=== PATIENT | male | born 1985 | race Two or more races ===

== ENCOUNTER 2019-12-23 15:28 | Inpatient (IN) | payer SELFPAY ==
[~2019-12-23] VITALS: Ht 160 cm; Wt 63.3 kg
[2019-12-23 15:30] VITALS: BP 130/80
[2019-12-23] MEDS ORDERED: Sodium Chloride 1,900 ML IVLG ONE (15:45)
[2019-12-23] MEDS ORDERED: Zinc Sulfate 220mg cap ORAL ONE (15:45)
[2019-12-23] MEDS ORDERED: Acetaminophen 500mg (ES) tab ORAL ONE (15:45)
--- NOTE | 2019-12-23 15:45 | Emergency Room Report ---
History of Present Illness General Chief Complaint: Fever Source: Patient Present Illness HPI Patient is a 34-year-old brought in by EMS after increased difficulty breathing and nonproductive cough. Patient presenting fever for the past 5 days. He reports having decreased appetite. Denies any significant abdominal pain. Reports having increased nausea and vomiting. Patient was noted to have some sick contacts at home. He reports having increased generalized pain and body aches. Patient denies any past medical history and states he works as a cook. Patient had been noted to be having low oxygen saturation with paramedics and was given supplemental oxygen as well as IV fluids. Allergies: Coded Allergies: No Known Allergies (Unverified , 12/23/19) COVID-19 Screening Contact w/high risk pt: No Recent Travel to affected area: No Experienced COVID-19 symptoms?: Yes COVID-19 symptoms experienced: Fever (T>100.4F or >38C), Cough Patient History Past Medical History: see triage record Reviewed Nursing Documentation: PMH: Agreed; PSxH: Agreed Nursing Documentation-PMH Past Medical History: No Stated History Review of Systems All Other Systems: negative except mentioned in HPI Physical Exam Vital Signs Date Time Temp Pulse Resp B/P (MAP) Pulse Ox O2 Delivery O2 Flow Rate FiO2 12/23/19 15:25 102.6 145 22 130/80 (97) 96 Nasal Cannula 2.0 General Appearance: alert, GCS 15, moderate distress ENT: hearing grossly normal Neck: full range of motion Respiratory: chest non-tender, rales, other - tachypnea Cardiovascular #1: normal peripheral pulses Gastrointestinal: normal inspection Musculoskeletal: normal inspection, back normal Neurologic: alert, motor strength/tone normal, corporate officer III-XII nml as tested, oriented x3 Psychiatric: normal inspection, memory normal Skin: no rash Procedures Critical Care Time Critical Care Time critical medical condition which untreated could potentially result in life or limb threatening injury. Total critical care time excluding procedures approximately 45 minutes. Medical Decision Making Diagnostic Impression: Primary Impression: Suspected 2019 novel coronavirus infection Additional Impression: Pneumonia ER Course Patient presented for fever. Differential diagnosis included wasn't limited to novel coronavirus infection, pneumonia, urinary tract infection, drug fever, allergic reaction, sepsis, cholecystitis, among others. because of complexity of patient's case laboratory tests and imaging studies were ordered. Patient was noted to have some symptoms consistent with coronavirus infection. Chest x- ray read by radiology showed questionable pulmonary infiltrate. Patient was given IV fluids as well as IV antibiotics. He was given antipyretic. He was started on supplemental oxygen and continued to have diminished oxygen saturation. Patient was admitted to the hospital for further evaluation and treatment of hypoxemia and suspected coronavirus infection. Dr. Benson was contacted for inpatient management due to panel physician Last Vital Signs Date Time Temp Pulse Resp B/P (MAP) Pulse Ox O2 Delivery O2 Flow Rate FiO2 12/23/19 15:25 102.6 145 22 130/80 (97) 96 Nasal Cannula 2.0 Status: improved Disposition: ADMITTED INPATIENT Condition: Serious Scripts No Active Prescriptions or Reported Meds Primo Wilson MD December 23, 2019 15:45
[2019-12-23 15:58] LABS: BASOPHILS % (AUTO) 0.4 % (0.0-2.0); HEMATOCRIT 47.6 % (42.0-52.0); HEMOGLOBIN 16.1 G/DL (14.2-18.0); LYMPHOCYTES % (AUTO) 16.6 % (20.0-45.0); MEAN CORPUSCULAR VOLUME 85 FL (80-99); MONOCYTES % (AUTO) 6.2 % (1.0-10.0); NEUTROPHILS % (AUTO) 76.9 % (45.0-75.0); PLATELET COUNT 164 K/UL (150-450); RED BLOOD COUNT 5.62 M/UL (4.70-6.10); RED CELL DISTRIBUTION WIDTH 11.6 % (11.6-14.8); WHITE BLOOD COUNT 6.2 K/UL (4.8-10.8)
[2019-12-23 16:30] VITALS: BP 130/80
[2019-12-23 16:38] LABS: ANION GAP 16 mmol/L (5-15); BLOOD UREA NITROGEN 12 mg/dL (7-18); CALCIUM 8.3 MG/DL (8.5-10.1); CARBON DIOXIDE 23 MMOL/L (21-32); CHLORIDE 101 MMOL/L (98-107); CREATININE 1.1 MG/DL (0.55-1.30); POTASSIUM 3.4 MMOL/L (3.5-5.1); SODIUM 140 MMOL/L (136-145)
[2019-12-23 16:51] LABS: ALANINE AMINOTRANSFERASE 36 U/L (12-78); ALBUMIN 3.6 G/DL (3.4-5.0); ALBUMIN/GLOBULIN RATIO 0.9 (1.0-2.7); ALKALINE PHOSPHATASE 58 U/L (46-116); ASPARTATE AMINO TRANSFERASE 29 U/L (15-37); BILIRUBIN,TOTAL 0.5 MG/DL (0.2-1.0); CKMB < 0.5 NG/ML (0.0-3.6); CREATINE KINASE 189 U/L (26-308); PHOSPHORUS 2.1 MG/DL (2.5-4.9)
[2019-12-23] MEDS ORDERED: Azithromycin 500 MG in D5W 275 ML IVPB ONE (17:00)
--- NOTE | 2019-12-23 17:03 | Diagnostic Imaging Report ---
Indication: Shortness of breath Technique: One view of the chest Comparison: none Findings: There is possibly some retrocardiac consolidation. There is some atelectasis at the left lung base. The remainder of the lungs and pleural spaces are clear. The heart size is normal. Impression: Questionable retrocardiac infiltrate Left basilar atelectasis
[2019-12-23 18:08] VITALS: BP 98/68
[2019-12-23] MEDS ORDERED: Ascorbic Acid 500mg tab ORAL ONE (18:15)
[2019-12-23] MEDS ORDERED: Thiamine HCl 100 MG in D5W 55 ML IVPB ONE (18:15)
[2019-12-23 18:46] VITALS: BP 100/69
[2019-12-23 19:10] VITALS: BP 107/69
[2019-12-23 19:58] LABS: APPEARANCE,URINE CLEAR; BILIRUBIN, URINE NEGATIVE (NEGATIVE); COLOR,URINE PALE YELLOW; GLUCOSE, URINE (UA) NEGATIVE (NEGATIVE); KETONES,URINE 3+ (NEGATIVE); LEUKOCYTE ESTERASE ,URINE NEGATIVE (NEGATIVE); NITRITE,URINE NEGATIVE (NEGATIVE); PH,URINE 6 (4.5-8.0); PROTEIN,URINE 2+ (NEGATIVE); UROBILINOGEN,URINE NORMAL MG/DL (0.0-1.0)
[2019-12-23 21:45] VITALS: BP 107/63
[2019-12-24] VITALS: BP 101/73
[2019-12-24 04:00] VITALS: BP 102/60
[2019-12-24 08:00] VITALS: BP 102/69
[2019-12-24 11:38] LABS: HEMATOCRIT 40.8 % (42.0-52.0); HEMOGLOBIN 14.5 G/DL (14.2-18.0); MEAN CORPUSCULAR VOLUME 82 FL (80-99); PLATELET COUNT 152 K/UL (150-450); RED BLOOD COUNT 4.96 M/UL (4.70-6.10); RED CELL DISTRIBUTION WIDTH 10.8 % (11.6-14.8); WHITE BLOOD COUNT 5.2 K/UL (4.8-10.8)
[2019-12-24 11:56] LABS: ALANINE AMINOTRANSFERASE 30 U/L (12-78); ALBUMIN 2.9 G/DL (3.4-5.0); ALBUMIN/GLOBULIN RATIO 0.8 (1.0-2.7); ALKALINE PHOSPHATASE 51 U/L (46-116); ANION GAP 9 mmol/L (5-15); ASPARTATE AMINO TRANSFERASE 24 U/L (15-37); BILIRUBIN,TOTAL 0.4 MG/DL (0.2-1.0); BLOOD UREA NITROGEN 9 mg/dL (7-18); CALCIUM 8.2 MG/DL (8.5-10.1); CARBON DIOXIDE 25 MMOL/L (21-32); CHLORIDE 106 MMOL/L (98-107); CREATININE 0.8 MG/DL (0.55-1.30); POTASSIUM 3.5 MMOL/L (3.5-5.1); SODIUM 140 MMOL/L (136-145)
[2019-12-24 12:00] VITALS: BP 111/70
--- NOTE | 2019-12-24 12:01 | Cardiac Electrophysiology PN ---
Subjective Subjective [id number] Objective Last 24 Hour Vital Signs Date Time Temp Pulse Resp B/P (MAP) Pulse Ox O2 Delivery O2 Flow Rate FiO2 12/24/19 08:00 97.6 100 21 102/69 (80) 97 12/24/19 04:00 99.1 102 19 102/60 (74) 98 12/24/19 04:00 106 12/24/19 00:00 98.8 71 18 101/73 (82) 97 12/24/19 00:00 85 12/23/19 22:00 Nasal Cannula 2.0 12/23/19 21:45 97.7 85 18 107/63 (78) 96 12/23/19 21:15 99.0 88 23 100/66 99 Nasal Cannula 2.0 12/23/19 19:10 99.1 94 27 107/69 98 Nasal Cannula 2.0 12/23/19 18:46 99.1 95 28 100/69 97 Nasal Cannula 2.0 12/23/19 18:08 101 28 98/68 98 Nasal Cannula 2.0 12/23/19 16:30 100.1 119 30 130/80 98 Nasal Cannula 2.0 12/23/19 16:22 102.5 12/23/19 15:30 119 30 12/23/19 15:25 102.6 145 22 130/80 (97) 96 Nasal Cannula 2.0 Intake and Output 12/23/19 12/24/19 19:00 07:00 # Voids 1 Laboratory Tests Test 12/23/19 15:35 12/23/19 19:30 12/24/19 10:45 White Blood Count 6.2 K/UL (4.8-10.8) 5.2 K/UL (4.8-10.8) Red Blood Count 5.62 M/UL (4.70-6.10) 4.96 M/UL (4.70-6.10) Hemoglobin 16.1 G/DL (14.2-18.0) 14.5 G/DL (14.2-18.0) Hematocrit 47.6 % (42.0-52.0) 40.8 % (42.0-52.0) L Mean Corpuscular Volume 85 FL (80-99) 82 FL (80-99) Mean Corpuscular Hemoglobin 28.7 PG (27.0-31.0) 29.2 PG (27.0-31.0) Mean Corpuscular Hemoglobin Concent 33.8 G/DL (32.0-36.0) 35.5 G/DL (32.0-36.0) Red Cell Distribution Width 11.6 % (11.6-14.8) 10.8 % (11.6-14.8) L Platelet Count 164 K/UL (150-450) 152 K/UL (150-450) Mean Platelet Volume 7.9 FL (6.5-10.1) 6.9 FL (6.5-10.1) Neutrophils (%) (Auto) 76.9 % (45.0-75.0) H % (45.0-75.0) Lymphocytes (%) (Auto) 16.6 % (20.0-45.0) L % (20.0-45.0) Monocytes (%) (Auto) 6.2 % (1.0-10.0) % (1.0-10.0) Eosinophils (%) (Auto) 0.0 % (0.0-3.0) % (0.0-3.0) Basophils (%) (Auto) 0.4 % (0.0-2.0) % (0.0-2.0) Sodium Level 140 MMOL/L (136-145) 140 MMOL/L (136-145) Potassium Level 3.4 MMOL/L (3.5-5.1) L 3.5 MMOL/L (3.5-5.1) Chloride Level 101 MMOL/L (98-107) 106 MMOL/L (98-107) Carbon Dioxide Level 23 MMOL/L (21-32) 25 MMOL/L (21-32) Anion Gap 16 mmol/L (5-15) H 9 mmol/L (5-15) Blood Urea Nitrogen 12 mg/dL (7-18) 9 mg/dL (7-18) Creatinine 1.1 MG/DL (0.55-1.30) 0.8 MG/DL (0.55-1.30) Estimat Glomerular Filtration Rate > 60 mL/min (>60) > 60 mL/min (>60) Glucose Level 114 MG/DL (74-106) H 113 MG/DL (74-106) H Lactic Acid Level 1.20 mmol/L (0.4-2.0) Calcium Level 8.3 MG/DL (8.5-10.1) L 8.2 MG/DL (8.5-10.1) L Phosphorus Level 2.1 MG/DL (2.5-4.9) L Magnesium Level 2.1 MG/DL (1.8-2.4) Total Bilirubin 0.5 MG/DL (0.2-1.0) 0.4 MG/DL (0.2-1.0) Aspartate Amino Transf (AST/SGOT) 29 U/L (15-37) 24 U/L (15-37) Alanine Aminotransferase (ALT/SGPT) 36 U/L (12-78) 30 U/L (12-78) Alkaline Phosphatase 58 U/L (46-116) 51 U/L (46-116) Total Creatine Kinase 189 U/L (26-308) Creatine Kinase MB < 0.5 NG/ML (0.0-3.6) Creatine Kinase MB Relative Index 0.2 Troponin I 0.000 ng/mL (0.000-0.056) Total Protein 7.5 G/DL (6.4-8.2) 6.5 G/DL (6.4-8.2) Albumin 3.6 G/DL (3.4-5.0) 2.9 G/DL (3.4-5.0) L Globulin 3.9 g/dL 3.6 g/dL Albumin/Globulin Ratio 0.9 (1.0-2.7) L 0.8 (1.0-2.7) L Urine Color Pale yellow Urine Appearance Clear Urine pH 6 (4.5-8.0) Urine Specific [place] 1.010 (1.005-1.035) Urine Protein 2+ (NEGATIVE) H Urine Glucose (UA) Negative (NEGATIVE) Urine Ketones 3+ (NEGATIVE) H Urine Blood Negative (NEGATIVE) Urine Nitrite Negative (NEGATIVE) Urine Bilirubin Negative (NEGATIVE) Urine Urobilinogen Normal MG/DL (0.0-1.0) Urine Leukocyte Esterase Negative (NEGATIVE) Urine RBC 0 /HPF (0 - 0) Urine WBC 0 /HPF (0 - 0) Urine Squamous Epithelial Cells None /LPF (NONE/OCC) Urine Bacteria None /HPF (NONE) Neutrophils % (Manual) Pending Lymphocytes % (Manual) Pending Platelet Estimate Pending Platelet Morphology Pending Paulo Panda MD December 24, 2019 12:01
[2019-12-24] MEDS: Azithromycin 250mg tab ORAL SCH (13:26)
[2019-12-24] MEDS: NS w/KCl 20mEq 1000ml 1,000 ML IV SCH (13:27)
[2019-12-24 16:00] VITALS: BP 117/76
--- NOTE | 2019-12-24 18:15 | Consultation ---
DATE OF CONSULTATION: 12/24/2019 PULMONARY CONSULTATION CONSULTING PHYSICIAN: Matt Rees MD. HISTORY OF PRESENT ILLNESS: This is a 34-year-old male who was brought into the hospital with cough and shortness of breath. Patient reports anorexia and fever. He denies abdominal pain. He has been having nausea and vomiting. He reports he has some sick contacts at home. Patient also reports myalgias. 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 PAST MEDICAL HISTORY: Otherwise noncontributory. SURGICAL HISTORY: None. SOCIAL HISTORY: None. REVIEW OF SYSTEMS: Denies any headaches, hematemesis, melena, hematochezia, night sweats, or weight loss. PHYSICAL EXAMINATION: GENERAL: Reveals a 34-year-old male. HEENT: Unremarkable. LUNGS: Show diminished breath sounds bilaterally with normal heart sounds. ABDOMEN: Soft. EXTREMITIES: There is no edema. VITAL SIGNS: O2 saturation 96% on 3 L of oxygen, blood pressure 130/80, heart rate is 120, respirations are 22, T-max 102.6. LABORATORY DATA: Lab testing shows normal CBC and chemistries with a potassium 3.4, glucose 114. Lactic acid 1.2. Urinalysis negative. IMAGING STUDIES: X-ray chest was obtained, which shows essentially clear lung foss with a possibility of a small left lung infiltrate. IMPRESSION: 1. Probable left lung pneumonia. 2. Rule out COVID-19. DISCUSSION: Admitted to the hospital. IV fluids to be given. Antiemetics and Tylenol. We will defer the initiation of Plaquenil to ID. Patient azithromycin. We will follow carefully. Matt Rees M.D. DR: SKY JOB#: [id number] CC:
[2019-12-24 20:00] VITALS: BP 112/70
--- NOTE | 2019-12-24 20:00 | Consultation ---
DATE OF CONSULTATION: 12/24/2019 INFECTIOUS DISEASES CONSULTATION CONSULTING PHYSICIAN: Jean Pierre Cardenas MD. PRIMARY ATTENDING PHYSICIAN: Neida Benson MD. REASON FOR CONSULTATION: Pneumonia, highly suspected COVID-19 disease. HISTORY OF PRESENT ILLNESS: The patient is a 34-year-old male admitted yesterday from home complaining of shortness of breath, fever, decreased appetite, nausea, vomiting for a week. At the time of admission, temperature of 102.6. He has coughing that is dry. His girlfriend became sick, has generalized body pain, decreased O2 saturation, and transferred to the hospital. PAST MEDICAL HISTORY: Insignificant. ALLERGIES: No known drug allergies. MEDICATIONS: Heparin, potassium chloride, sodium chloride , Tylenol, get dose of azithromycin, vitamin C, zinc in the ER. SOCIAL HISTORY: Lives with girlfriend, has no child. Denies alcohol, drug abuse, smoking. REVIEW OF SYSTEMS: Fever, dry cough, nausea, vomiting. No diarrhea. No problem passing urine. PHYSICAL EXAMINATION: VITAL SIGNS: Temperature 97.6, maximum temperature 102.6, pulse 100, blood pressure 102/69. GENERAL APPEARANCE: No acute distress, seems to have normal weight. HEAD AND NECK: [place] conjunctiva. HEART: Normal rate. LUNGS: Clear. ABDOMEN: Soft and nontender. EXTREMITIES: No edema. NEUROLOGIC: Awake, alert, oriented x3. LABORATORY AND DIAGNOSTIC DATA: Chest x-ray showed possibility of retrocardiac infiltrate. WBC 6.2, hemoglobin 16.1, hematocrit 47.6, has lymphopenia 16.6%. Sodium 140, potassium 3.4, chloride 101, bicarbonate 23, BUN 12, creatinine 1.1, glucose 114. Lactic acid normal, Magnesium 2.1. Phosphorus 2.1. IMPRESSION: 1. Pneumonia, likely COVID-19. 2. The patient has lymphopenia, fever. RECOMMENDATION: Continue Zithromax. The patient agrees if condition become worse, will be started on hydroxychloroquine. At the end of my exam, I thank Dr. Benson, for involving me in the care of this patient. Jean Peirre Cardenas M.D. DR: Nabil JOB#: [id number] CC: OSVALDO
[2019-12-24] MEDS: Heparin 5000 units/ml inj SUBQ SCH (20:29)
--- NOTE | 2019-12-24 22:14 | Consultation ---
DATE OF CONSULTATION: 12/24/2019 CARDIOLOGY CONSULTATION REFERRING PHYSICIAN: Neida Benson MD REASON FOR CONSULTATION: Shortness of breath and tachycardia, heart rate of 140s. HISTORY OF PRESENT ILLNESS: Patient is a 34-year-old gentleman who was brought in by paramedics for increased difficulty breathing as well as cough that is nonproductive. This has been going on for the last 5 days and he has had decreased appetite. Patient has reported increased nausea and vomiting. He is noted to have some sick contacts at home including generalized pain and body ache. 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 Patient was admitted and cardiology consultation was obtained for further evaluation. REVIEW OF SYSTEMS: Negative other than what was mentioned in history of present illness. PAST MEDICAL HISTORY: As mentioned above. FAMILY HISTORY: Noncontributory. MEDICATIONS: Per reconciliation. SOCIAL HISTORY: He works as a cook. Does not smoke or drink alcohol. PHYSICAL EXAMINATION: VITAL SIGNS: Blood pressure is 102/69, pulse is 100, respirations 18, temperature 97.6. NECK: No JVD. LUNGS: Coarse rhonchi. CARDIOVASCULAR: Regular S1 and S2 and tachycardic. ABDOMEN: Soft. EXTREMITIES: No pitting edema. LABORATORY AND DIAGNOSTIC DATA: Labs showed white count of 5.2, hemoglobin 14.5, hematocrit 40, and platelet count is 152. Sodium 140, potassium 3.5, BUN of 9, creatinine 0.8, and glucose of 113. The first troponin is negative. Urinalysis showed 3+ ketones. His chest x-ray shows left basilar atelectasis and consolidation. ASSESSMENT AND PLAN: 1. Tachycardia, likely due to the patient's infection and sepsis. Patient has been ruled out for COVID. Patient is already on azithromycin as well. 2. Shortness of breath, likely due to COVID pneumonia, but the final result is pending. Patient is already on antibiotics. Thank you very much Dr. Benson for allowing me to participate in the care of this patient. Please do not hesitate to contact me for any questions regarding my evaluation. Paulo Panda M.D. DR: Jimena JOB#: [id number] CC:
--- NOTE | 2019-12-24 23:15 | History and Physical Report ---
DATE OF ADMISSION: 12/23/2019 HISTORY OF PRESENT ILLNESS: The patient comes in with suspected COVID with cough and shortness of breath for couple of days, borderline O2 saturation. Chest x-ray shows pneumonia. The patient is highly suspicious of COVID, antibiotics with IV fluids and oxygen was given in the ER. The patient basically did have fever and chills. Denies abdominal pain. Denies nausea, vomiting, or diarrhea. The patient also is having body aches, myalgias and weakness. Denies headache. PAST MEDICAL HISTORY: Basically none. PAST SURGICAL HISTORY: None. ALLERGIES: No known allergies. MEDICATIONS: None. SOCIAL HISTORY: Denies history of smoking. Denies alcohol or illicit drugs. REVIEW OF SYSTEMS: HEENT: Denies headaches. RESPIRATORY: Denies shortness of breath. Cough for couple of days. CARDIOVASCULAR: Denies chest pain. Denies orthopnea. GASTROINTESTINAL: Denies nausea, vomiting or diarrhea. Denies abdominal pain. EXTREMITIES: Denies pain. CENTRAL NERVOUS SYSTEM: Denies change in speech pattern. Feels weak. PHYSICAL EXAMINATION: VITAL SIGNS: Temperature is 99.9, pulse is 100, blood pressure 102/69. HEENT: PERRLA. NECK: Supple. No lymphadenopathy. CHEST: Clear to auscultation. CARDIOVASCULAR: Tachycardic. GASTROINTESTINAL: Soft, nontender, nondistended. No organomegaly. EXTREMITIES: No edema. Reflexes equal on both sides. Moves all four extremities. LABORATORY DATA: WBC of 6.2, hemoglobin of 16.1, and platelets of 164. Sodium 140, potassium of 3.4, BUN of 12, creatinine 1.1, and glucose of 114. ASSESSMENT AND PLAN: Respiratory insufficiency, pneumonia, rule out COVID. I have asked basically Dr. Panda, Dr. Morrow, Dr. Greenfield about to see the patient for the treatment of the suspected COVID and also make sure that there is no cardiac pathology and sometimes the patients viral pneumonia presents with cardiac issues. We will monitor the patient very closely. Antibiotics per Dr. Jean Pierre Cardenas. Neida Benson M.D. DR: Priscila JOB#: [id number] CC:
[2019-12-25] VITALS: BP 101/72
[2019-12-25] MEDS: NS w/KCl 20mEq 1000ml 1,000 ML IV SCH ×2 (01:47→15:59)
[2019-12-25 04:00] VITALS: BP 115/65
[2019-12-25 04:32] LABS: BASOPHILS % (AUTO) 0.3 % (0.0-2.0); EOSINOPHILS % (AUTO) 0.2 % (0.0-3.0); HEMATOCRIT 39.1 % (42.0-52.0); HEMOGLOBIN 13.9 G/DL (14.2-18.0); LYMPHOCYTES % (AUTO) 25.4 % (20.0-45.0); MEAN CORPUSCULAR VOLUME 82 FL (80-99); NEUTROPHILS % (AUTO) 68.1 % (45.0-75.0); PLATELET COUNT 171 K/UL (150-450); RED BLOOD COUNT 4.78 M/UL (4.70-6.10); RED CELL DISTRIBUTION WIDTH 10.7 % (11.6-14.8); WHITE BLOOD COUNT 5.7 K/UL (4.8-10.8)
[2019-12-25 04:49] LABS: ANION GAP 11 mmol/L (5-15); BLOOD UREA NITROGEN 9 mg/dL (7-18); CALCIUM 7.8 MG/DL (8.5-10.1); CARBON DIOXIDE 26 MMOL/L (21-32); CHLORIDE 106 MMOL/L (98-107); CREATININE 0.8 MG/DL (0.55-1.30); POTASSIUM 3.7 MMOL/L (3.5-5.1); SODIUM 143 MMOL/L (136-145)
[2019-12-25 08:00] VITALS: BP 106/64
[2019-12-25] MEDS: Azithromycin 250mg tab ORAL SCH (10:20)
[2019-12-25] MEDS: Heparin 5000 units/ml inj SUBQ SCH ×2 (10:22→21:50)
--- NOTE | 2019-12-25 10:48 | Pulmonology Progress Note ---
Subjective Interval Events: + COVID 19 Constitutional: Reports: no symptoms HEENT: Repors: no symptoms Respiratory: Reports: dry cough, shortness of breath Cardiovascular: Reports: no symptoms Gastrointestinal/Abdominal: Reports: no symptoms Allergies: Coded Allergies: No Known Allergies (Unverified , 12/23/19) Objective Last 24 Hour Vital Signs Date Time Temp Pulse Resp B/P (MAP) Pulse Ox O2 Delivery O2 Flow Rate FiO2 12/25/19 09:00 Nasal Cannula 2.0 12/25/19 08:00 101.5 94 21 106/64 (78) 97 12/25/19 08:00 91 12/25/19 04:00 97.0 100 19 115/65 (82) 99 12/25/19 04:00 103 12/25/19 00:00 98.2 102 18 101/72 (82) 100 12/25/19 00:00 101 12/24/19 21:00 Nasal Cannula 2.0 12/24/19 20:00 116 12/24/19 20:00 98.5 115 18 112/70 (84) 97 12/24/19 16:00 98.7 69 19 117/76 (90) 95 12/24/19 16:00 115 12/24/19 12:00 98.3 10 20 111/70 (84) 95 12/24/19 12:00 121 Intake and Output 12/24/19 12/25/19 19:00 07:00 Intake Total 1290 ml Balance 1290 ml Intake Oral 960 ml IV Total 330 ml # Voids 2 # Bowel Movements 1 1 General Appearance: no acute distress HEENT: normocephalic Respiratory/Chest: chest wall non-tender, lungs clear Cardiovascular: normal peripheral pulses, normal rate Abdomen: normal bowel sounds Microbiology Date/Time Source Procedure Growth Status 12/23/19 15:50 Blood Blood Culture - Preliminary NO GROWTH AFTER 24 HOURS Resulted 12/23/19 15:35 Blood Blood Culture - Preliminary NO GROWTH AFTER 24 HOURS Resulted 12/23/19 15:35 Nasopharynx Coronavirus COVID-19 PCR (MEG) - Final Complete Laboratory Tests 12/25/19 04:00: White Blood Count 5.7, Red Blood Count 4.78, Hemoglobin 13.9L, Hematocrit 39.1L , Mean Corpuscular Volume 82, Mean Corpuscular Hemoglobin 29.1, Mean Corpuscular Hemoglobin Concent 35.5, Red Cell Distribution Width 10.7L, Platelet Count 171, Mean Platelet Volume 7.8, Neutrophils (%) (Auto) 68.1, Lymphocytes (%) (Auto) 25.4, Monocytes (%) (Auto) 6.0, Eosinophils (%) (Auto) 0.2, Basophils (%) (Auto) 0.3, Sodium Level 143, Potassium Level 3.7, Chloride Level 106, Carbon Dioxide Level 26, Anion Gap 11, Blood Urea Nitrogen 9, Creatinine 0.8, Estimat Glomerular Filtration Rate > 60, Glucose Level 99, Calcium Level 7.8L Current Medications Medications (Trade) Dose Ordered Sig/Brayden Route PRN Reason Start Time Stop Time Status Last Admin Dose Admin Acetaminophen (Tylenol) 650 mg Q4H PRN ORAL Temp >100.5 12/23/19 23:00 01/22/20 22:59 12/25/19 10:21 Acetaminophen (Tylenol) 650 mg Q4H PRN ORAL Mild Pain (Pain Scale 1-3) 12/24/19 10:45 01/23/20 10:44 Azithromycin (Zithromax) 500 mg DAILY ORAL 12/24/19 11:30 12/31/19 11:29 12/25/19 10:20 Dextrose (Dextrose 50%) 25 ml Q30M PRN IV Hypoglycemia 12/24/19 10:45 03/23/20 10:44 Dextrose (Dextrose 50%) 50 ml Q30M PRN IV Hypoglycemia 12/24/19 10:45 03/23/20 10:44 Heparin Sodium (Porcine) (Heparin 5000 units/ml) 5,000 units EVERY 12 HOURS SUBQ 12/24/19 21:00 02/07/20 20:59 12/25/19 10:22 Potassium Chloride/Sodium Chloride 1,000 ml @ 75 mls/hr [id number] IV 12/24/19 12:00 01/23/20 11:59 12/25/19 01:47 Assessment/Plan Assessment/Plan IMPRESSION: 1. Left lung pneumonia. 2. Positive COVID-19. DISCUSSION: Admitted to the hospital. IV fluids. Antiemetics and Tylenol. I will defer the initiation of Plaquenil to ID. Patient is on azithromycin. I will follow carefully. Jen Martinez Omar Syed MD December 25, 2019 10:48
[2019-12-25 12:00] VITALS: BP 117/65
--- NOTE | 2019-12-25 12:22 | Cardiac Electrophysiology PN ---
Assessment/Plan Assessment/Plan 1. Tachycardia, likely due to the patient's infection and sepsis and COVID PNA 2. Shortness of breath due to COVID pneumonia. 3. Fever 101 on Azithromycin Subjective Subjective In isolation for COVID PNA. Had fever 101.5 again Objective Last 24 Hour Vital Signs Date Time Temp Pulse Resp B/P (MAP) Pulse Ox O2 Delivery O2 Flow Rate FiO2 12/25/19 12:00 99.7 69 20 117/65 (82) 97 12/25/19 10:51 98.4 12/25/19 09:00 Nasal Cannula 2.0 12/25/19 08:00 101.5 94 21 106/64 (78) 97 12/25/19 08:00 91 12/25/19 04:00 97.0 100 19 115/65 (82) 99 12/25/19 04:00 103 12/25/19 00:00 98.2 102 18 101/72 (82) 100 12/25/19 00:00 101 12/24/19 21:00 Nasal Cannula 2.0 12/24/19 20:00 116 12/24/19 20:00 98.5 115 18 112/70 (84) 97 12/24/19 16:00 98.7 69 19 117/76 (90) 95 12/24/19 16:00 115 Intake and Output 12/24/19 12/25/19 19:00 07:00 Intake Total 1290 ml Balance 1290 ml Intake Oral 960 ml IV Total 330 ml # Voids 2 # Bowel Movements 1 1 Laboratory Tests Test 12/25/19 04:00 White Blood Count 5.7 K/UL (4.8-10.8) Red Blood Count 4.78 M/UL (4.70-6.10) Hemoglobin 13.9 G/DL (14.2-18.0) L Hematocrit 39.1 % (42.0-52.0) L Mean Corpuscular Volume 82 FL (80-99) Mean Corpuscular Hemoglobin 29.1 PG (27.0-31.0) Mean Corpuscular Hemoglobin Concent 35.5 G/DL (32.0-36.0) Red Cell Distribution Width 10.7 % (11.6-14.8) L Platelet Count 171 K/UL (150-450) Mean Platelet Volume 7.8 FL (6.5-10.1) Neutrophils (%) (Auto) 68.1 % (45.0-75.0) Lymphocytes (%) (Auto) 25.4 % (20.0-45.0) Monocytes (%) (Auto) 6.0 % (1.0-10.0) Eosinophils (%) (Auto) 0.2 % (0.0-3.0) Basophils (%) (Auto) 0.3 % (0.0-2.0) Sodium Level 143 MMOL/L (136-145) Potassium Level 3.7 MMOL/L (3.5-5.1) Chloride Level 106 MMOL/L (98-107) Carbon Dioxide Level 26 MMOL/L (21-32) Anion Gap 11 mmol/L (5-15) Blood Urea Nitrogen 9 mg/dL (7-18) Creatinine 0.8 MG/DL (0.55-1.30) Estimat Glomerular Filtration Rate > 60 mL/min (>60) Glucose Level 99 MG/DL (74-106) Calcium Level 7.8 MG/DL (8.5-10.1) L Microbiology Date/Time Source Procedure Growth Status 12/23/19 15:50 Blood Blood Culture - Preliminary NO GROWTH AFTER 24 HOURS Resulted 12/23/19 15:35 Blood Blood Culture - Preliminary NO GROWTH AFTER 24 HOURS Resulted 12/23/19 15:35 Nasopharynx Coronavirus COVID-19 PCR (MEG) - Final Complete Objective HEENT : No JVD. LUNGS: Coarse rhonchi. CARDIOVASCULAR: Regular S1 and S2 and tachycardic. ABDOMEN: Soft. EXTREMITIES: No pitting edema. Paulo Panda MD December 25, 2019 12:22
--- NOTE | 2019-12-25 14:36 | Infectious Diseases Prog Note ---
Assessment/Plan Assessment/Plan IMPRESSION: 1. Pneumonia with COVID-19. 2. Lymphopenia, 3.fever. RECOMMENDATION: Continue Zithromax. will be started on hydroxychloroquine after obtaining EKG Subjective ROS Limited/Unobtainable: Yes Constitutional: Reports: fever, other - Tu=963.5 Allergies: Coded Allergies: No Known Allergies (Unverified , 12/23/19) Objective Vital Signs Last 24 Hour Vital Signs Date Time Temp Pulse Resp B/P (MAP) Pulse Ox O2 Delivery O2 Flow Rate FiO2 12/25/19 14:00 91 12/25/19 12:00 99.7 69 20 117/65 (82) 97 12/25/19 10:51 98.4 12/25/19 09:00 Nasal Cannula 2.0 12/25/19 08:00 101.5 94 21 106/64 (78) 97 12/25/19 08:00 91 12/25/19 04:00 97.0 100 19 115/65 (82) 99 12/25/19 04:00 103 12/25/19 00:00 98.2 102 18 101/72 (82) 100 12/25/19 00:00 101 12/24/19 21:00 Nasal Cannula 2.0 12/24/19 20:00 116 12/24/19 20:00 98.5 115 18 112/70 (84) 97 12/24/19 16:00 98.7 69 19 117/76 (90) 95 12/24/19 16:00 115 Height (Feet): 5 Height (Inches): 3.00 Weight (Pounds): 139 General Appearance: no acute distress HEENT: mucous membranes moist Respiratory/Chest: lungs clear Cardiovascular: normal rate Abdomen: soft, non tender Extremities: no edema Neurologic/Psychiatric: other - sleeping Microbiology Date/Time Source Procedure Growth Status 12/23/19 15:50 Blood Blood Culture - Preliminary NO GROWTH AFTER 24 HOURS Resulted 12/23/19 15:35 Blood Blood Culture - Preliminary NO GROWTH AFTER 24 HOURS Resulted 12/23/19 15:35 Nasopharynx Coronavirus COVID-19 PCR (MEG) - Final Complete Laboratory Tests Test 12/25/19 04:00 White Blood Count 5.7 K/UL (4.8-10.8) Red Blood Count 4.78 M/UL (4.70-6.10) Hemoglobin 13.9 G/DL (14.2-18.0) L Hematocrit 39.1 % (42.0-52.0) L Mean Corpuscular Volume 82 FL (80-99) Mean Corpuscular Hemoglobin 29.1 PG (27.0-31.0) Mean Corpuscular Hemoglobin Concent 35.5 G/DL (32.0-36.0) Red Cell Distribution Width 10.7 % (11.6-14.8) L Platelet Count 171 K/UL (150-450) Mean Platelet Volume 7.8 FL (6.5-10.1) Neutrophils (%) (Auto) 68.1 % (45.0-75.0) Lymphocytes (%) (Auto) 25.4 % (20.0-45.0) Monocytes (%) (Auto) 6.0 % (1.0-10.0) Eosinophils (%) (Auto) 0.2 % (0.0-3.0) Basophils (%) (Auto) 0.3 % (0.0-2.0) Sodium Level 143 MMOL/L (136-145) Potassium Level 3.7 MMOL/L (3.5-5.1) Chloride Level 106 MMOL/L (98-107) Carbon Dioxide Level 26 MMOL/L (21-32) Anion Gap 11 mmol/L (5-15) Blood Urea Nitrogen 9 mg/dL (7-18) Creatinine 0.8 MG/DL (0.55-1.30) Estimat Glomerular Filtration Rate > 60 mL/min (>60) Glucose Level 99 MG/DL (74-106) Calcium Level 7.8 MG/DL (8.5-10.1) L Current Medications Medications (Trade) Dose Ordered Sig/Brayden Route PRN Reason Start Time Stop Time Status Last Admin Dose Admin Acetaminophen (Tylenol) 650 mg Q4H PRN ORAL Temp >100.5 12/23/19 23:00 01/22/20 22:59 12/25/19 10:21 Acetaminophen (Tylenol) 650 mg Q4H PRN ORAL Mild Pain (Pain Scale 1-3) 12/24/19 10:45 01/23/20 10:44 Azithromycin (Zithromax) 500 mg DAILY ORAL 12/24/19 11:30 12/31/19 11:29 12/25/19 10:20 Dextrose (Dextrose 50%) 25 ml Q30M PRN IV Hypoglycemia 12/24/19 10:45 03/23/20 10:44 Dextrose (Dextrose 50%) 50 ml Q30M PRN IV Hypoglycemia 12/24/19 10:45 03/23/20 10:44 Heparin Sodium (Porcine) (Heparin 5000 units/ml) 5,000 units EVERY 12 HOURS SUBQ 12/24/19 21:00 02/07/20 20:59 12/25/19 10:22 Potassium Chloride/Sodium Chloride 1,000 ml @ 75 mls/hr [id number] IV 12/24/19 12:00 01/23/20 11:59 12/25/19 01:47 Jean Pierre Cardenas MD December 25, 2019 14:36
[2019-12-25 16:00] VITALS: BP 105/60
--- NOTE | 2019-12-25 16:29 | General Progress Note ---
Assessment/Plan Problem List: (1) Suspected 2019 novel coronavirus infection ICD Codes: Z20.828 - Contact with and (suspected) exposure to other viral communicable diseases SNOMED: 762044644 (2) Fever ICD Codes: R50.9 - Fever, unspecified SNOMED: 354284093 (3) Shortness of breath ICD Codes: R06.02 - Shortness of breath SNOMED: 559239481 Assessment/Plan: r/o covid no sob afebrile no wheezing reviewed chart and labs Subjective ROS Limited/Unobtainable: Yes Allergies: Coded Allergies: No Known Allergies (Unverified , 12/23/19) Objective Last 24 Hour Vital Signs Date Time Temp Pulse Resp B/P (MAP) Pulse Ox O2 Delivery O2 Flow Rate FiO2 12/25/19 14:00 91 12/25/19 12:00 99.7 69 20 117/65 (82) 97 12/25/19 10:51 98.4 12/25/19 09:00 Nasal Cannula 2.0 12/25/19 08:00 101.5 94 21 106/64 (78) 97 12/25/19 08:00 91 12/25/19 04:00 97.0 100 19 115/65 (82) 99 12/25/19 04:00 103 12/25/19 00:00 98.2 102 18 101/72 (82) 100 12/25/19 00:00 101 12/24/19 21:00 Nasal Cannula 2.0 12/24/19 20:00 116 12/24/19 20:00 98.5 115 18 112/70 (84) 97 Intake and Output 12/24/19 12/25/19 19:00 07:00 Intake Total 1290 ml Balance 1290 ml Intake Oral 960 ml IV Total 330 ml # Voids 2 # Bowel Movements 1 1 Laboratory Tests 12/25/19 04:00: White Blood Count 5.7, Red Blood Count 4.78, Hemoglobin 13.9L, Hematocrit 39.1L , Mean Corpuscular Volume 82, Mean Corpuscular Hemoglobin 29.1, Mean Corpuscular Hemoglobin Concent 35.5, Red Cell Distribution Width 10.7L, Platelet Count 171, Mean Platelet Volume 7.8, Neutrophils (%) (Auto) 68.1, Lymphocytes (%) (Auto) 25.4, Monocytes (%) (Auto) 6.0, Eosinophils (%) (Auto) 0.2, Basophils (%) (Auto) 0.3, Sodium Level 143, Potassium Level 3.7, Chloride Level 106, Carbon Dioxide Level 26, Anion Gap 11, Blood Urea Nitrogen 9, Creatinine 0.8, Estimat Glomerular Filtration Rate > 60, Glucose Level 99, Calcium Level 7.8L Height (Feet): 5 Height (Inches): 3.00 Weight (Pounds): 139 Neida Benson MD December 25, 2019 16:29
[2019-12-25 20:00] VITALS: BP 115/74
[2019-12-26] VITALS: BP 103/67
[2019-12-26 04:00] VITALS: BP 116/64
[2019-12-26] MEDS: NS w/KCl 20mEq 1000ml 1,000 ML IV SCH ×2 (04:54→16:23)
[2019-12-26 08:00] VITALS: BP 112/70
[2019-12-26] MEDS: Azithromycin 250mg tab ORAL SCH (08:41)
[2019-12-26] MEDS: Heparin 5000 units/ml inj SUBQ SCH ×2 (08:43→21:06)
--- NOTE | 2019-12-26 11:10 | Pulmonology Progress Note ---
Subjective ROS Limited/Unobtainable: Yes Interval Events: + COVID 19 Constitutional: Reports: fever, other - Xn=498.5 HEENT: Repors: no symptoms Respiratory: Reports: dry cough, shortness of breath Cardiovascular: Reports: no symptoms Gastrointestinal/Abdominal: Reports: no symptoms Allergies: Coded Allergies: No Known Allergies (Unverified , 12/23/19) Objective Last 24 Hour Vital Signs Date Time Temp Pulse Resp B/P (MAP) Pulse Ox O2 Delivery O2 Flow Rate FiO2 12/26/19 09:00 Nasal Cannula 2.0 12/26/19 08:00 98.4 69 20 112/70 (84) 95 12/26/19 08:00 121 12/26/19 04:00 99.7 98 20 116/64 (81) 100 12/26/19 04:00 91 12/26/19 00:00 99 12/26/19 00:00 100.0 105 20 103/67 (79) 98 12/25/19 21:00 Nasal Cannula 2.0 12/25/19 20:00 104 12/25/19 20:00 100.0 108 22 115/74 (88) 96 12/25/19 16:00 98.2 76 21 105/60 (75) 95 12/25/19 16:00 89 12/25/19 14:00 91 12/25/19 12:00 99.7 69 20 117/65 (82) 97 Intake and Output 12/25/19 12/26/19 19:00 07:00 Intake Total 1275 ml 950 ml Output Total 400 ml Balance 1275 ml 550 ml Intake Oral 1200 ml 350 ml IV Total 75 ml 600 ml Output Urine Total 400 ml # Voids 2 # Bowel Movements 1 1 General Appearance: no acute distress HEENT: mucous membranes moist Respiratory/Chest: chest wall non-tender, lungs clear Cardiovascular: normal peripheral pulses, normal rate Abdomen: soft, non tender Extremities: no edema Neurologic/Psychiatric: other - sleeping Microbiology Date/Time Source Procedure Growth Status 12/23/19 15:50 Blood Blood Culture - Preliminary NO GROWTH AFTER 48 HOURS Resulted 12/23/19 15:35 Blood Blood Culture - Preliminary NO GROWTH AFTER 48 HOURS Resulted 12/23/19 15:35 Nasopharynx Coronavirus COVID-19 PCR (MEG) - Final Complete Current Medications Medications (Trade) Dose Ordered Sig/Brayden Route PRN Reason Start Time Stop Time Status Last Admin Dose Admin Acetaminophen (Tylenol) 650 mg Q4H PRN ORAL Temp >100.5 12/23/19 23:00 01/22/20 22:59 12/25/19 10:21 Acetaminophen (Tylenol) 650 mg Q4H PRN ORAL Mild Pain (Pain Scale 1-3) 12/24/19 10:45 01/23/20 10:44 Azithromycin (Zithromax) 500 mg DAILY ORAL 12/24/19 11:30 12/31/19 11:29 12/26/19 08:41 Dextrose (Dextrose 50%) 25 ml Q30M PRN IV Hypoglycemia 12/24/19 10:45 03/23/20 10:44 Dextrose (Dextrose 50%) 50 ml Q30M PRN IV Hypoglycemia 12/24/19 10:45 03/23/20 10:44 Heparin Sodium (Porcine) (Heparin 5000 units/ml) 5,000 units EVERY 12 HOURS SUBQ 12/24/19 21:00 02/07/20 20:59 12/26/19 08:43 Potassium Chloride/Sodium Chloride 1,000 ml @ 75 mls/hr [id number] IV 12/24/19 12:00 01/23/20 11:59 12/26/19 04:54 Assessment/Plan Assessment/Plan IMPRESSION: 1. Left lung pneumonia. 2. Positive COVID-19. DISCUSSION: Admitted to the hospital. IV fluids. Antiemetics and Tylenol. I will defer the initiation of Plaquenil to ID. Patient is on azithromycin. I will follow carefully. Saturating well on 2L/min O2 Jen Martinez Omar Syed MD December 26, 2019 11:10
[2019-12-26 11:56] VITALS: BP 106/64
--- NOTE | 2019-12-26 12:28 | Infectious Diseases Prog Note ---
Assessment/Plan Assessment/Plan IMPRESSION: 1. Pneumonia with COVID-19. 2. Lymphopenia, resolving 3.fever. RECOMMENDATION: Continue Zithromax. Subjective ROS Limited/Unobtainable: No Constitutional: Reports: fever, other - low grade, feels better Respiratory: Reports: dry cough; Denies: shortness of breath Gastrointestinal/Abdominal: Reports: no symptoms Genitourinary: Reports: no symptoms Neurologic: Reports: no symptoms Allergies: Coded Allergies: No Known Allergies (Unverified , 12/23/19) Objective Vital Signs Last 24 Hour Vital Signs Date Time Temp Pulse Resp B/P (MAP) Pulse Ox O2 Delivery O2 Flow Rate FiO2 12/26/19 11:56 98.4 93 21 106/64 (78) 95 12/26/19 09:00 Nasal Cannula 2.0 12/26/19 08:00 98.4 69 20 112/70 (84) 95 12/26/19 08:00 121 12/26/19 04:00 99.7 98 20 116/64 (81) 100 12/26/19 04:00 91 12/26/19 00:00 99 12/26/19 00:00 100.0 105 20 103/67 (79) 98 12/25/19 21:00 Nasal Cannula 2.0 12/25/19 20:00 104 12/25/19 20:00 100.0 108 22 115/74 (88) 96 12/25/19 16:00 98.2 76 21 105/60 (75) 95 12/25/19 16:00 89 12/25/19 14:00 91 Height (Feet): 5 Height (Inches): 3.00 Weight (Pounds): 139 General Appearance: no acute distress HEENT: anicteric Respiratory/Chest: other - oxygen by nasal cannula Cardiovascular: normal rate Abdomen: soft, non tender Extremities: no edema Neurologic/Psychiatric: alert, oriented x 3, responsive Microbiology Date/Time Source Procedure Growth Status 12/23/19 15:50 Blood Blood Culture - Preliminary NO GROWTH AFTER 48 HOURS Resulted 12/23/19 15:35 Blood Blood Culture - Preliminary NO GROWTH AFTER 48 HOURS Resulted 12/23/19 15:35 Nasopharynx Coronavirus COVID-19 PCR (MEG) - Final Complete Current Medications Medications (Trade) Dose Ordered Sig/Brayden Route PRN Reason Start Time Stop Time Status Last Admin Dose Admin Acetaminophen (Tylenol) 650 mg Q4H PRN ORAL Temp >100.5 12/23/19 23:00 01/22/20 22:59 12/25/19 10:21 Acetaminophen (Tylenol) 650 mg Q4H PRN ORAL Mild Pain (Pain Scale 1-3) 12/24/19 10:45 01/23/20 10:44 Azithromycin (Zithromax) 500 mg DAILY ORAL 12/24/19 11:30 12/31/19 11:29 12/26/19 08:41 Dextrose (Dextrose 50%) 25 ml Q30M PRN IV Hypoglycemia 12/24/19 10:45 03/23/20 10:44 Dextrose (Dextrose 50%) 50 ml Q30M PRN IV Hypoglycemia 12/24/19 10:45 03/23/20 10:44 Heparin Sodium (Porcine) (Heparin 5000 units/ml) 5,000 units EVERY 12 HOURS SUBQ 12/24/19 21:00 02/07/20 20:59 12/26/19 08:43 Potassium Chloride/Sodium Chloride 1,000 ml @ 75 mls/hr [id number] IV 12/24/19 12:00 01/23/20 11:59 12/26/19 04:54 Jean Pierre Cardenas MD December 26, 2019 12:28
--- NOTE | 2019-12-26 13:58 | Cardiac Electrophysiology PN ---
Assessment/Plan Assessment/Plan 1. Tachycardia, likely due to sepsis and COVID PNA 2. Shortness of breath due to COVID pneumonia. 3. Fever 101 on Azithromycin Subjective Subjective In isolation for COVID PNA. No new events Objective Last 24 Hour Vital Signs Date Time Temp Pulse Resp B/P (MAP) Pulse Ox O2 Delivery O2 Flow Rate FiO2 12/26/19 11:56 98.4 93 21 106/64 (78) 95 12/26/19 09:00 Nasal Cannula 2.0 12/26/19 08:00 98.4 69 20 112/70 (84) 95 12/26/19 08:00 121 12/26/19 04:00 99.7 98 20 116/64 (81) 100 12/26/19 04:00 91 12/26/19 00:00 99 12/26/19 00:00 100.0 105 20 103/67 (79) 98 12/25/19 21:00 Nasal Cannula 2.0 12/25/19 20:00 104 12/25/19 20:00 100.0 108 22 115/74 (88) 96 12/25/19 16:00 98.2 76 21 105/60 (75) 95 12/25/19 16:00 89 12/25/19 14:00 91 Intake and Output 12/25/19 12/26/19 19:00 07:00 Intake Total 1275 ml 950 ml Output Total 400 ml Balance 1275 ml 550 ml Intake Oral 1200 ml 350 ml IV Total 75 ml 600 ml Output Urine Total 400 ml # Voids 2 # Bowel Movements 1 1 Microbiology Date/Time Source Procedure Growth Status 12/23/19 15:50 Blood Blood Culture - Preliminary NO GROWTH AFTER 48 HOURS Resulted 12/23/19 15:35 Blood Blood Culture - Preliminary NO GROWTH AFTER 48 HOURS Resulted 12/23/19 15:35 Nasopharynx Coronavirus COVID-19 PCR (MEG) - Final Complete Objective HEENT : No JVD. LUNGS: Coarse rhonchi. CARDIOVASCULAR: Regular S1 and S2 and tachycardic. ABDOMEN: Soft. EXTREMITIES: No pitting edema. Paulo Panda MD December 26, 2019 13:58
[2019-12-26 15:34] VITALS: BP 109/66
--- NOTE | 2019-12-26 16:36 | General Progress Note ---
Assessment/Plan Problem List: (1) Suspected 2019 novel coronavirus infection ICD Codes: Z20.828 - Contact with and (suspected) exposure to other viral communicable diseases SNOMED: 163210630 (2) Fever ICD Codes: R50.9 - Fever, unspecified SNOMED: 381350297 (3) Shortness of breath ICD Codes: R06.02 - Shortness of breath SNOMED: 577479089 Status: progressing Assessment/Plan: covid positive pna not hypoxic no sob afebrile no wheezing reviewed chart and labs Subjective ROS Limited/Unobtainable: Yes Allergies: Coded Allergies: No Known Allergies (Unverified , 12/23/19) Objective Last 24 Hour Vital Signs Date Time Temp Pulse Resp B/P (MAP) Pulse Ox O2 Delivery O2 Flow Rate FiO2 12/26/19 15:34 99.1 92 20 109/66 (80) 97 12/26/19 11:56 98.4 93 21 106/64 (78) 95 12/26/19 09:00 Nasal Cannula 2.0 12/26/19 08:00 98.4 69 20 112/70 (84) 95 12/26/19 08:00 121 12/26/19 04:00 99.7 98 20 116/64 (81) 100 12/26/19 04:00 91 12/26/19 00:00 99 12/26/19 00:00 100.0 105 20 103/67 (79) 98 12/25/19 21:00 Nasal Cannula 2.0 12/25/19 20:00 104 12/25/19 20:00 100.0 108 22 115/74 (88) 96 Intake and Output 12/25/19 12/26/19 19:00 07:00 Intake Total 1275 ml 950 ml Output Total 400 ml Balance 1275 ml 550 ml Intake Oral 1200 ml 350 ml IV Total 75 ml 600 ml Output Urine Total 400 ml # Voids 2 # Bowel Movements 1 1 Height (Feet): 5 Height (Inches): 3.00 Weight (Pounds): 139 Neida Benson MD December 26, 2019 16:36
[2019-12-26 20:00] VITALS: BP 112/62
[2019-12-27] VITALS: BP 100/61
[2019-12-27 04:00] VITALS: BP 100/62
[2019-12-27] MEDS: NS w/KCl 20mEq 1000ml 1,000 ML IV SCH ×2 (06:21→22:37)
[2019-12-27 08:00] VITALS: BP 99/59
[2019-12-27] MEDS: Azithromycin 250mg tab ORAL SCH (08:34)
[2019-12-27] MEDS: Heparin 5000 units/ml inj SUBQ SCH ×2 (08:35→22:36)
--- NOTE | 2019-12-27 11:25 | Pulmonology Progress Note ---
Subjective ROS Limited/Unobtainable: Yes Interval Events: + COVID 19 Constitutional: Reports: fever, other - low grade, feels better HEENT: Repors: no symptoms Respiratory: Reports: dry cough, shortness of breath Cardiovascular: Reports: no symptoms Gastrointestinal/Abdominal: Reports: no symptoms Allergies: Coded Allergies: No Known Allergies (Unverified , 12/23/19) Objective Last 24 Hour Vital Signs Date Time Temp Pulse Resp B/P (MAP) Pulse Ox O2 Delivery O2 Flow Rate FiO2 12/27/19 09:00 Nasal Cannula 2.0 12/27/19 08:00 97.9 83 16 99/59 (72) 98 12/27/19 07:44 103 12/27/19 04:00 80 12/27/19 04:00 97.5 85 18 100/62 (75) 98 12/27/19 00:00 97.7 81 19 100/61 (74) 95 12/27/19 00:00 89 12/26/19 21:00 Nasal Cannula 2.0 12/26/19 20:00 97.5 87 19 112/62 (79) 97 12/26/19 20:00 85 12/26/19 16:00 94 12/26/19 15:34 99.1 92 20 109/66 (80) 97 12/26/19 12:00 119 12/26/19 11:56 98.4 93 21 106/64 (78) 95 Intake and Output 12/26/19 12/27/19 19:00 07:00 Intake Total 825 ml Balance 825 ml IV Total 825 ml # Voids 2 1 # Bowel Movements 2 1 General Appearance: no acute distress HEENT: anicteric Respiratory/Chest: chest wall non-tender, lungs clear Cardiovascular: normal peripheral pulses, normal rate Abdomen: soft, non tender Extremities: no edema Neurologic/Psychiatric: alert, oriented x 3, responsive Current Medications Medications (Trade) Dose Ordered Sig/Brayden Route PRN Reason Start Time Stop Time Status Last Admin Dose Admin Acetaminophen (Tylenol) 650 mg Q4H PRN ORAL Temp >100.5 12/23/19 23:00 01/22/20 22:59 12/25/19 10:21 Acetaminophen (Tylenol) 650 mg Q4H PRN ORAL Mild Pain (Pain Scale 1-3) 12/24/19 10:45 01/23/20 10:44 Azithromycin (Zithromax) 500 mg DAILY ORAL 12/24/19 11:30 12/31/19 11:29 12/27/19 08:34 Dextrose (Dextrose 50%) 25 ml Q30M PRN IV Hypoglycemia 12/24/19 10:45 03/23/20 10:44 Dextrose (Dextrose 50%) 50 ml Q30M PRN IV Hypoglycemia 12/24/19 10:45 03/23/20 10:44 Heparin Sodium (Porcine) (Heparin 5000 units/ml) 5,000 units EVERY 12 HOURS SUBQ 12/24/19 21:00 02/07/20 20:59 12/27/19 08:35 Potassium Chloride/Sodium Chloride 1,000 ml @ 75 mls/hr [id number] IV 12/24/19 12:00 01/23/20 11:59 12/27/19 06:21 Assessment/Plan Assessment/Plan IMPRESSION: 1. Left lung pneumonia. 2. Positive COVID-19. DISCUSSION: Admitted to the hospital. IV fluids. Antiemetics and Tylenol. I will defer the initiation of Plaquenil to ID. Patient is on azithromycin. I will follow carefully. Saturating well on 2L/min O2 Matt Rees M.D. Matt Rees MD December 27, 2019 11:25
[2019-12-27 12:00] VITALS: BP 103/68
--- NOTE | 2019-12-27 15:32 | Cardiac Electrophysiology PN ---
Assessment/Plan Assessment/Plan 1. Tachycardia, likely due to sepsis and COVID PNA 2. Shortness of breath due to COVID pneumonia. 3. Fever 101 on Abx per ID DW RN Subjective Subjective In isolation for COVID PNA. No new events. If afebrile for 3 days, will DC home Objective Last 24 Hour Vital Signs Date Time Temp Pulse Resp B/P (MAP) Pulse Ox O2 Delivery O2 Flow Rate FiO2 12/27/19 09:00 Nasal Cannula 2.0 12/27/19 08:00 97.9 83 16 99/59 (72) 98 12/27/19 07:44 103 12/27/19 04:00 80 12/27/19 04:00 97.5 85 18 100/62 (75) 98 12/27/19 00:00 97.7 81 19 100/61 (74) 95 12/27/19 00:00 89 12/26/19 21:00 Nasal Cannula 2.0 12/26/19 20:00 97.5 87 19 112/62 (79) 97 12/26/19 20:00 85 12/26/19 16:00 94 12/26/19 15:34 99.1 92 20 109/66 (80) 97 Intake and Output 12/26/19 12/27/19 19:00 07:00 Intake Total 825 ml Balance 825 ml IV Total 825 ml # Voids 2 1 # Bowel Movements 2 1 Objective HEENT : No JVD. LUNGS: Coarse rhonchi. CARDIOVASCULAR: Regular S1 and S2 and tachycardic. ABDOMEN: Soft. EXTREMITIES: No pitting edema. Paulo Panda MD December 27, 2019 15:32
[2019-12-27 16:00] VITALS: BP 103/69
--- NOTE | 2019-12-27 16:27 | General Progress Note ---
Assessment/Plan Problem List: (1) Suspected 2019 novel coronavirus infection ICD Codes: Z20.828 - Contact with and (suspected) exposure to other viral communicable diseases SNOMED: 890375762 (2) Fever ICD Codes: R50.9 - Fever, unspecified SNOMED: 921322333 (3) Shortness of breath ICD Codes: R06.02 - Shortness of breath SNOMED: 950418043 Status: progressing Assessment/Plan: covid positive pna no sob no wheezing supportive therapy reviewed chart and labs Subjective ROS Limited/Unobtainable: Yes Allergies: Coded Allergies: No Known Allergies (Unverified , 12/23/19) Objective Last 24 Hour Vital Signs Date Time Temp Pulse Resp B/P (MAP) Pulse Ox O2 Delivery O2 Flow Rate FiO2 12/27/19 16:00 97.9 81 18 103/69 (80) 99 12/27/19 12:00 97.1 85 16 103/68 (80) 96 12/27/19 11:47 87 12/27/19 09:00 Nasal Cannula 2.0 12/27/19 08:00 97.9 83 16 99/59 (72) 98 12/27/19 07:44 103 12/27/19 04:00 80 12/27/19 04:00 97.5 85 18 100/62 (75) 98 12/27/19 00:00 97.7 81 19 100/61 (74) 95 12/27/19 00:00 89 12/26/19 21:00 Nasal Cannula 2.0 12/26/19 20:00 97.5 87 19 112/62 (79) 97 12/26/19 20:00 85 Intake and Output 12/26/19 12/27/19 19:00 07:00 Intake Total 825 ml Balance 825 ml IV Total 825 ml # Voids 2 1 # Bowel Movements 2 1 Height (Feet): 5 Height (Inches): 3.00 Weight (Pounds): 139 Neida Benson MD December 27, 2019 16:27
[2019-12-27 20:00] VITALS: BP 105/68
[2019-12-28] VITALS: BP 98/66
[2019-12-28 04:00] VITALS: BP 95/62
[2019-12-28 08:00] VITALS: BP 101/65
[2019-12-28] MEDS: Azithromycin 250mg tab ORAL SCH (08:42)
[2019-12-28] MEDS: NS w/KCl 20mEq 1000ml 1,000 ML IV SCH ×2 (08:43→15:34)
[2019-12-28] MEDS: Heparin 5000 units/ml inj SUBQ SCH ×2 (08:43→20:21)
--- NOTE | 2019-12-28 09:42 | Pulmonology Progress Note ---
Subjective ROS Limited/Unobtainable: Yes Interval Events: + COVID 19 Constitutional: Reports: fever, other - low grade, feels better HEENT: Repors: no symptoms Respiratory: Reports: dry cough, shortness of breath Cardiovascular: Reports: no symptoms Gastrointestinal/Abdominal: Reports: no symptoms Allergies: Coded Allergies: No Known Allergies (Unverified , 12/23/19) Objective Last 24 Hour Vital Signs Date Time Temp Pulse Resp B/P (MAP) Pulse Ox O2 Delivery O2 Flow Rate FiO2 12/28/19 08:00 99.3 73 18 101/65 (77) 100 12/28/19 04:00 65 12/28/19 04:00 96.0 72 19 95/62 (73) 100 12/28/19 00:00 74 12/28/19 00:00 96.8 74 19 98/66 (77) 98 12/27/19 21:00 Nasal Cannula 2.0 12/27/19 20:00 97.5 83 18 105/68 (80) 98 12/27/19 20:00 80 12/27/19 16:00 97.9 81 18 103/69 (80) 99 12/27/19 15:46 68 12/27/19 12:00 97.1 85 16 103/68 (80) 96 12/27/19 11:47 87 Intake and Output 12/27/19 12/28/19 19:00 07:00 Intake Total 810 ml 600 ml Output Total 300 ml Balance 510 ml 600 ml Intake Oral 810 ml IV Total 600 ml Output Urine Total 300 ml # Voids 3 1 # Bowel Movements 1 General Appearance: no acute distress HEENT: anicteric Respiratory/Chest: chest wall non-tender, lungs clear Cardiovascular: normal peripheral pulses, normal rate Abdomen: soft, non tender Extremities: no edema Neurologic/Psychiatric: alert, oriented x 3, responsive Current Medications Medications (Trade) Dose Ordered Sig/Brayden Route PRN Reason Start Time Stop Time Status Last Admin Dose Admin Acetaminophen (Tylenol) 650 mg Q4H PRN ORAL Temp >100.5 12/23/19 23:00 01/22/20 22:59 12/25/19 10:21 Acetaminophen (Tylenol) 650 mg Q4H PRN ORAL Mild Pain (Pain Scale 1-3) 12/24/19 10:45 01/23/20 10:44 Azithromycin (Zithromax) 500 mg DAILY ORAL 12/24/19 11:30 12/31/19 11:29 12/28/19 08:42 Dextrose (Dextrose 50%) 25 ml Q30M PRN IV Hypoglycemia 12/24/19 10:45 03/23/20 10:44 Dextrose (Dextrose 50%) 50 ml Q30M PRN IV Hypoglycemia 12/24/19 10:45 03/23/20 10:44 Heparin Sodium (Porcine) (Heparin 5000 units/ml) 5,000 units EVERY 12 HOURS SUBQ 12/24/19 21:00 02/07/20 20:59 12/28/19 08:43 Potassium Chloride/Sodium Chloride 1,000 ml @ 75 mls/hr [id number] IV 12/24/19 12:00 01/23/20 11:59 12/28/19 08:43 Assessment/Plan Assessment/Plan IMPRESSION: 1. Left lung pneumonia. 2. Positive COVID-19. DISCUSSION: Admitted to the hospital. IV fluids. Antiemetics and Tylenol. I will defer the initiation of Plaquenil to ID. Patient is on azithromycin. I will follow carefully. Saturating well on 2L/min O2 Jen Martinez Omar Syed MD December 28, 2019 09:42
[2019-12-28 12:00] VITALS: BP 102/71
--- NOTE | 2019-12-28 14:06 | Infectious Diseases Prog Note ---
Assessment/Plan Assessment/Plan IMPRESSION: 1. Pneumonia with COVID-19. 2. Lymphopenia, resolving 3.fever. RECOMMENDATION: Continue Zithromax. CXR in am Subjective ROS Limited/Unobtainable: No Constitutional: Denies: fever Respiratory: Reports: shortness of breath, dry cough Gastrointestinal/Abdominal: Reports: no symptoms Genitourinary: Reports: no symptoms Allergies: Coded Allergies: No Known Allergies (Unverified , 12/23/19) Objective Vital Signs Last 24 Hour Vital Signs Date Time Temp Pulse Resp B/P (MAP) Pulse Ox O2 Delivery O2 Flow Rate FiO2 12/28/19 12:00 84 12/28/19 12:00 97.6 87 18 102/71 (81) 100 12/28/19 09:00 Nasal Cannula 2.0 12/28/19 08:00 99.3 73 18 101/65 (77) 100 12/28/19 07:53 66 12/28/19 04:00 65 12/28/19 04:00 96.0 72 19 95/62 (73) 100 12/28/19 00:00 74 12/28/19 00:00 96.8 74 19 98/66 (77) 98 12/27/19 21:00 Nasal Cannula 2.0 12/27/19 20:00 97.5 83 18 105/68 (80) 98 12/27/19 20:00 80 12/27/19 16:00 97.9 81 18 103/69 (80) 99 12/27/19 15:46 68 Height (Feet): 5 Height (Inches): 3.00 Weight (Pounds): 139 General Appearance: no acute distress HEENT: mucous membranes moist Respiratory/Chest: lungs clear Cardiovascular: normal rate Extremities: no edema Neurologic/Psychiatric: alert, oriented x 3, responsive Current Medications Medications (Trade) Dose Ordered Sig/Brayden Route PRN Reason Start Time Stop Time Status Last Admin Dose Admin Acetaminophen (Tylenol) 650 mg Q4H PRN ORAL Temp >100.5 12/23/19 23:00 01/22/20 22:59 12/25/19 10:21 Acetaminophen (Tylenol) 650 mg Q4H PRN ORAL Mild Pain (Pain Scale 1-3) 12/24/19 10:45 01/23/20 10:44 Azithromycin (Zithromax) 500 mg DAILY ORAL 12/24/19 11:30 12/31/19 11:29 12/28/19 08:42 Dextrose (Dextrose 50%) 25 ml Q30M PRN IV Hypoglycemia 12/24/19 10:45 03/23/20 10:44 Dextrose (Dextrose 50%) 50 ml Q30M PRN IV Hypoglycemia 12/24/19 10:45 03/23/20 10:44 Heparin Sodium (Porcine) (Heparin 5000 units/ml) 5,000 units EVERY 12 HOURS SUBQ 12/24/19 21:00 02/07/20 20:59 12/28/19 08:43 Potassium Chloride/Sodium Chloride 1,000 ml @ 75 mls/hr [id number] IV 12/24/19 12:00 01/23/20 11:59 12/28/19 08:43 Jean Pierre Cardenas MD December 28, 2019 14:06
[2019-12-28 15:54] VITALS: BP 103/68
[2019-12-28 20:00] VITALS: BP 114/68
--- NOTE | 2019-12-28 20:24 | General Progress Note ---
Assessment/Plan Problem List: (1) Suspected 2019 novel coronavirus infection ICD Codes: Z20.828 - Contact with and (suspected) exposure to other viral communicable diseases SNOMED: 998779784 (2) Fever ICD Codes: R50.9 - Fever, unspecified SNOMED: 407941002 (3) Shortness of breath ICD Codes: R06.02 - Shortness of breath SNOMED: 316309209 Status: progressing Assessment/Plan: covid positive pna sepsis abx per id non change supportive rx Subjective ROS Limited/Unobtainable: Yes Allergies: Coded Allergies: No Known Allergies (Unverified , 12/23/19) Objective Last 24 Hour Vital Signs Date Time Temp Pulse Resp B/P (MAP) Pulse Ox O2 Delivery O2 Flow Rate FiO2 12/28/19 16:09 74 12/28/19 15:54 98.1 82 18 103/68 (80) 95 12/28/19 12:00 84 12/28/19 12:00 97.6 87 18 102/71 (81) 100 12/28/19 09:00 Nasal Cannula 2.0 12/28/19 08:00 99.3 73 18 101/65 (77) 100 12/28/19 07:53 66 12/28/19 04:00 65 12/28/19 04:00 96.0 72 19 95/62 (73) 100 12/28/19 00:00 74 12/28/19 00:00 96.8 74 19 98/66 (77) 98 12/27/19 21:00 Nasal Cannula 2.0 Intake and Output 12/27/19 12/28/19 19:00 07:00 Intake Total 810 ml 600 ml Output Total 300 ml Balance 510 ml 600 ml Intake Oral 810 ml IV Total 600 ml Output Urine Total 300 ml # Voids 3 1 # Bowel Movements 1 Height (Feet): 5 Height (Inches): 3.00 Weight (Pounds): 139 Neida Benson MD December 28, 2019 20:24
--- NOTE | 2019-12-28 23:00 | Cardiac Electrophysiology PN ---
Assessment/Plan Assessment/Plan 1. Tachycardia, likely due to sepsis and COVID PNA 2. Shortness of breath due to COVID pneumonia. 3. Fever 101 on Abx per ID DW RN Subjective Subjective In isolation for COVID PNA. DC planning home If afebrile for 3 days. Objective Last 24 Hour Vital Signs Date Time Temp Pulse Resp B/P (MAP) Pulse Ox O2 Delivery O2 Flow Rate FiO2 12/28/19 21:00 Nasal Cannula 2.0 12/28/19 20:00 66 12/28/19 20:00 98.0 75 18 114/68 (83) 98 12/28/19 16:09 74 12/28/19 15:54 98.1 82 18 103/68 (80) 95 12/28/19 12:00 84 12/28/19 12:00 97.6 87 18 102/71 (81) 100 12/28/19 09:00 Nasal Cannula 2.0 12/28/19 08:00 99.3 73 18 101/65 (77) 100 12/28/19 07:53 66 12/28/19 04:00 65 12/28/19 04:00 96.0 72 19 95/62 (73) 100 12/28/19 00:00 74 12/28/19 00:00 96.8 74 19 98/66 (77) 98 Intake and Output 12/27/19 12/28/19 19:00 07:00 Intake Total 810 ml 600 ml Output Total 300 ml Balance 510 ml 600 ml Intake Oral 810 ml IV Total 600 ml Output Urine Total 300 ml # Voids 3 1 # Bowel Movements 1 Objective HEENT : No JVD. LUNGS: Coarse rhonchi. CARDIOVASCULAR: Regular S1 and S2 and tachycardic. ABDOMEN: Soft. EXTREMITIES: No pitting edema. Paulo Panda MD December 28, 2019 23:00
[2019-12-29] VITALS: BP 119/71
[2019-12-29 04:00] VITALS: BP 112/66
[2019-12-29] MEDS: NS w/KCl 20mEq 1000ml 1,000 ML IV SCH ×2 (07:25→18:47)
[2019-12-29 08:00] VITALS: BP 104/60
[2019-12-29] MEDS: Azithromycin 250mg tab ORAL SCH (08:10)
[2019-12-29] MEDS: Heparin 5000 units/ml inj SUBQ SCH ×2 (08:12→20:41)
--- NOTE | 2019-12-29 10:59 | Diagnostic Imaging Report ---
Indication: Shortness of breath Technique: One view of the chest Comparison: 12/23/2019 Findings: There is some developing peripheral infiltrate at the right mid to lower lung. There is some persistent atelectasis at the left lung base. Unchanged faint retrocardiac consolidation Impression: Stable retrocardiac consolidation and left basilar atelectasis. Possible developing right peripheral infiltrate
--- NOTE | 2019-12-29 11:04 | Infectious Diseases Prog Note ---
Assessment/Plan Assessment/Plan IMPRESSION: 1. Pneumonia with COVID-19. 2. Lymphopenia, resolving 3.fever resolved RECOMMENDATION: Continue Zithromax. If remains stable can be discharged soon Subjective ROS Limited/Unobtainable: No Constitutional: Reports: no symptoms Respiratory: Reports: dry cough Gastrointestinal/Abdominal: Reports: no symptoms Genitourinary: Reports: no symptoms Allergies: Coded Allergies: No Known Allergies (Unverified , 12/23/19) Objective Vital Signs Last 24 Hour Vital Signs Date Time Temp Pulse Resp B/P (MAP) Pulse Ox O2 Delivery O2 Flow Rate FiO2 12/29/19 09:00 Nasal Cannula 2.0 12/29/19 08:00 97.2 71 18 104/60 (75) 97 12/29/19 07:51 70 12/29/19 04:00 98.2 68 18 112/66 (81) 97 12/29/19 04:00 59 12/29/19 00:00 98.0 65 18 119/71 (87) 97 12/29/19 00:00 64 12/28/19 21:00 Nasal Cannula 2.0 12/28/19 20:00 66 12/28/19 20:00 98.0 75 18 114/68 (83) 98 12/28/19 16:09 74 12/28/19 15:54 98.1 82 18 103/68 (80) 95 12/28/19 12:00 84 12/28/19 12:00 97.6 87 18 102/71 (81) 100 Height (Feet): 5 Height (Inches): 3.00 Weight (Pounds): 139 General Appearance: no acute distress HEENT: mucous membranes moist Respiratory/Chest: other - oxygen by nasal cannula Cardiovascular: normal rate Abdomen: soft, non tender Extremities: no edema Neurologic/Psychiatric: alert, oriented x 3, responsive Current Medications Medications (Trade) Dose Ordered Sig/Brayden Route PRN Reason Start Time Stop Time Status Last Admin Dose Admin Acetaminophen (Tylenol) 650 mg Q4H PRN ORAL Temp >100.5 12/23/19 23:00 01/22/20 22:59 12/25/19 10:21 Acetaminophen (Tylenol) 650 mg Q4H PRN ORAL Mild Pain (Pain Scale 1-3) 12/24/19 10:45 01/23/20 10:44 Azithromycin (Zithromax) 500 mg DAILY ORAL 12/24/19 11:30 12/31/19 11:29 12/29/19 08:10 Dextrose (Dextrose 50%) 25 ml Q30M PRN IV Hypoglycemia 12/24/19 10:45 03/23/20 10:44 Dextrose (Dextrose 50%) 50 ml Q30M PRN IV Hypoglycemia 12/24/19 10:45 03/23/20 10:44 Heparin Sodium (Porcine) (Heparin 5000 units/ml) 5,000 units EVERY 12 HOURS SUBQ 12/24/19 21:00 02/07/20 20:59 12/29/19 08:12 Potassium Chloride/Sodium Chloride 1,000 ml @ 75 mls/hr [id number] IV 12/24/19 12:00 01/23/20 11:59 12/29/19 07:25 Jean Pierre Cardenas MD December 29, 2019 11:04
[2019-12-29 11:56] VITALS: BP 101/64
--- NOTE | 2019-12-29 13:13 | Cardiac Electrophysiology PN ---
Assessment/Plan Assessment/Plan 1. Sinus tachycardia due to sepsis and COVID PNA 2. Shortness of breath due to COVID pneumonia. 3. Fever 101 on Abx per ID DW RN Subjective Subjective In isolation for COVID PNA. In SR Objective Last 24 Hour Vital Signs Date Time Temp Pulse Resp B/P (MAP) Pulse Ox O2 Delivery O2 Flow Rate FiO2 12/29/19 11:56 98.1 75 19 101/64 (76) 98 12/29/19 09:00 Nasal Cannula 2.0 12/29/19 08:00 97.2 71 18 104/60 (75) 97 12/29/19 07:51 70 12/29/19 04:00 98.2 68 18 112/66 (81) 97 12/29/19 04:00 59 12/29/19 00:00 98.0 65 18 119/71 (87) 97 12/29/19 00:00 64 12/28/19 21:00 Nasal Cannula 2.0 12/28/19 20:00 66 12/28/19 20:00 98.0 75 18 114/68 (83) 98 12/28/19 16:09 74 12/28/19 15:54 98.1 82 18 103/68 (80) 95 Intake and Output 12/28/19 12/29/19 19:00 07:00 Intake Total 1620 ml 750 ml Balance 1620 ml 750 ml Intake Oral 720 ml IV Total 900 ml 750 ml # Voids 2 2 Objective HEENT : No JVD. LUNGS: Coarse rhonchi. CARDIOVASCULAR: Regular S1 and S2 and tachycardic. ABDOMEN: Soft. EXTREMITIES: No pitting edema. Paulo Panda MD December 29, 2019 13:13
--- NOTE | 2019-12-29 15:05 | Pulmonology Progress Note ---
Subjective ROS Limited/Unobtainable: No Interval Events: + COVID 19 Constitutional: Reports: no symptoms HEENT: Repors: no symptoms Respiratory: Reports: dry cough, shortness of breath Cardiovascular: Reports: no symptoms Gastrointestinal/Abdominal: Reports: no symptoms Allergies: Coded Allergies: No Known Allergies (Unverified , 12/23/19) Objective Last 24 Hour Vital Signs Date Time Temp Pulse Resp B/P (MAP) Pulse Ox O2 Delivery O2 Flow Rate FiO2 12/29/19 11:56 98.1 75 19 101/64 (76) 98 12/29/19 11:39 71 12/29/19 09:00 Nasal Cannula 2.0 12/29/19 08:00 97.2 71 18 104/60 (75) 97 12/29/19 07:51 70 12/29/19 04:00 98.2 68 18 112/66 (81) 97 12/29/19 04:00 59 12/29/19 00:00 98.0 65 18 119/71 (87) 97 12/29/19 00:00 64 12/28/19 21:00 Nasal Cannula 2.0 12/28/19 20:00 66 12/28/19 20:00 98.0 75 18 114/68 (83) 98 12/28/19 16:09 74 12/28/19 15:54 98.1 82 18 103/68 (80) 95 Intake and Output 12/28/19 12/29/19 19:00 07:00 Intake Total 1620 ml 750 ml Balance 1620 ml 750 ml Intake Oral 720 ml IV Total 900 ml 750 ml # Voids 2 2 General Appearance: no acute distress HEENT: mucous membranes moist Respiratory/Chest: chest wall non-tender, lungs clear Cardiovascular: normal peripheral pulses, normal rate Abdomen: soft, non tender Extremities: no edema Neurologic/Psychiatric: alert, oriented x 3, responsive Current Medications Medications (Trade) Dose Ordered Sig/Brayden Route PRN Reason Start Time Stop Time Status Last Admin Dose Admin Acetaminophen (Tylenol) 650 mg Q4H PRN ORAL Temp >100.5 12/23/19 23:00 01/22/20 22:59 12/25/19 10:21 Acetaminophen (Tylenol) 650 mg Q4H PRN ORAL Mild Pain (Pain Scale 1-3) 12/24/19 10:45 01/23/20 10:44 Azithromycin (Zithromax) 500 mg DAILY ORAL 12/24/19 11:30 12/31/19 11:29 12/29/19 08:10 Dextrose (Dextrose 50%) 25 ml Q30M PRN IV Hypoglycemia 12/24/19 10:45 03/23/20 10:44 Dextrose (Dextrose 50%) 50 ml Q30M PRN IV Hypoglycemia 12/24/19 10:45 03/23/20 10:44 Heparin Sodium (Porcine) (Heparin 5000 units/ml) 5,000 units EVERY 12 HOURS SUBQ 12/24/19 21:00 02/07/20 20:59 12/29/19 08:12 Potassium Chloride/Sodium Chloride 1,000 ml @ 75 mls/hr [id number] IV 12/24/19 12:00 01/23/20 11:59 12/29/19 07:25 Assessment/Plan Assessment/Plan IMPRESSION: 1. Left lung pneumonia. 2. Positive COVID-19. DISCUSSION: Admitted to the hospital. IV fluids. Antiemetics and Tylenol. I will defer the initiation of Plaquenil to ID. Patient is on azithromycin. I will follow carefully. Saturating well on 2L/min O2 Jen Martinez Omar Syed MD December 29, 2019 15:05
[2019-12-29 15:53] VITALS: BP 105/68
[2019-12-29 20:00] VITALS: BP 101/67
--- NOTE | 2019-12-29 21:23 | General Progress Note ---
Assessment/Plan Problem List: (1) Suspected 2019 novel coronavirus infection ICD Codes: Z20.828 - Contact with and (suspected) exposure to other viral communicable diseases SNOMED: 945790300 (2) Fever ICD Codes: R50.9 - Fever, unspecified SNOMED: 817356956 (3) Shortness of breath ICD Codes: R06.02 - Shortness of breath SNOMED: 282816748 Status: progressing Assessment/Plan: covid positive pna sepsis reviewed chart oxygen supportive therapy Subjective ROS Limited/Unobtainable: Yes Allergies: Coded Allergies: No Known Allergies (Unverified , 12/23/19) Objective Last 24 Hour Vital Signs Date Time Temp Pulse Resp B/P (MAP) Pulse Ox O2 Delivery O2 Flow Rate FiO2 12/29/19 21:03 Nasal Cannula 2.0 12/29/19 20:00 97.5 75 15 101/67 (78) 99 12/29/19 20:00 76 12/29/19 15:53 98.1 66 20 105/68 (80) 100 12/29/19 15:28 63 12/29/19 11:56 98.1 75 19 101/64 (76) 98 12/29/19 11:39 71 12/29/19 09:00 Nasal Cannula 2.0 12/29/19 08:00 97.2 71 18 104/60 (75) 97 12/29/19 07:51 70 12/29/19 04:00 98.2 68 18 112/66 (81) 97 12/29/19 04:00 59 12/29/19 00:00 98.0 65 18 119/71 (87) 97 12/29/19 00:00 64 Intake and Output 12/28/19 12/29/19 19:00 07:00 Intake Total 1620 ml 750 ml Balance 1620 ml 750 ml Intake Oral 720 ml IV Total 900 ml 750 ml # Voids 2 2 Height (Feet): 5 Height (Inches): 3.00 Weight (Pounds): 139 Neida Benson MD December 29, 2019 21:23
[2019-12-30] VITALS: BP 108/62
[2019-12-30 04:00] VITALS: BP 110/61
[2019-12-30 08:00] VITALS: BP 103/59
[2019-12-30] MEDS: Azithromycin 250mg tab ORAL SCH (08:41)
[2019-12-30] MEDS: Heparin 5000 units/ml inj SUBQ SCH ×2 (08:43→20:38)
[2019-12-30] MEDS: NS w/KCl 20mEq 1000ml 1,000 ML IV SCH (08:43)
--- NOTE | 2019-12-30 11:34 | Cardiac Electrophysiology PN ---
Assessment/Plan Assessment/Plan 1. Sinus tachy due to sepsis and COVID PNA 2. Shortness of breath due to COVID pneumonia. 3. Fever on Azithomycin per ID DW RN Subjective Subjective In isolation for COVID PNA. In SR Objective Last 24 Hour Vital Signs Date Time Temp Pulse Resp B/P (MAP) Pulse Ox O2 Delivery O2 Flow Rate FiO2 12/30/19 09:00 Nasal Cannula 2.0 12/30/19 08:00 98.6 71 18 103/59 (74) 100 12/30/19 07:48 67 12/30/19 04:00 97.3 61 15 110/61 (77) 99 12/30/19 03:56 56 12/30/19 00:00 97.7 70 16 108/62 (77) 98 12/30/19 00:00 63 12/29/19 21:03 Nasal Cannula 2.0 12/29/19 20:00 97.5 75 15 101/67 (78) 99 12/29/19 20:00 76 12/29/19 15:53 98.1 66 20 105/68 (80) 100 12/29/19 15:28 63 12/29/19 11:56 98.1 75 19 101/64 (76) 98 12/29/19 11:39 71 Intake and Output 12/29/19 12/30/19 19:00 07:00 Intake Total 990 ml Balance 990 ml Intake Oral 140 ml IV Total 850 ml # Voids 1 Objective HEENT : No JVD. LUNGS: Coarse rhonchi. CARDIOVASCULAR: Regular S1 and S2 and tachycardic. ABDOMEN: Soft. EXTREMITIES: No pitting edema. Paulo Panda MD December 30, 2019 11:34
--- NOTE | 2019-12-30 11:51 | Pulmonology Progress Note ---
Subjective ROS Limited/Unobtainable: Yes Interval Events: + COVID 19 Constitutional: Reports: no symptoms HEENT: Repors: no symptoms Respiratory: Reports: dry cough, shortness of breath Cardiovascular: Reports: no symptoms Gastrointestinal/Abdominal: Reports: no symptoms Allergies: Coded Allergies: No Known Allergies (Unverified , 12/23/19) Objective Last 24 Hour Vital Signs Date Time Temp Pulse Resp B/P (MAP) Pulse Ox O2 Delivery O2 Flow Rate FiO2 12/30/19 09:00 Nasal Cannula 2.0 12/30/19 08:00 98.6 71 18 103/59 (74) 100 12/30/19 07:48 67 12/30/19 04:00 97.3 61 15 110/61 (77) 99 12/30/19 03:56 56 12/30/19 00:00 97.7 70 16 108/62 (77) 98 12/30/19 00:00 63 12/29/19 21:03 Nasal Cannula 2.0 12/29/19 20:00 97.5 75 15 101/67 (78) 99 12/29/19 20:00 76 12/29/19 15:53 98.1 66 20 105/68 (80) 100 12/29/19 15:28 63 12/29/19 11:56 98.1 75 19 101/64 (76) 98 Intake and Output 12/29/19 12/30/19 19:00 07:00 Intake Total 990 ml Balance 990 ml Intake Oral 140 ml IV Total 850 ml # Voids 1 General Appearance: no acute distress HEENT: mucous membranes moist Respiratory/Chest: chest wall non-tender, lungs clear Cardiovascular: normal peripheral pulses, normal rate Abdomen: soft, non tender Extremities: no edema Neurologic/Psychiatric: alert, oriented x 3, responsive Current Medications Medications (Trade) Dose Ordered Sig/Brayden Route PRN Reason Start Time Stop Time Status Last Admin Dose Admin Acetaminophen (Tylenol) 650 mg Q4H PRN ORAL Temp >100.5 12/23/19 23:00 01/22/20 22:59 12/25/19 10:21 Acetaminophen (Tylenol) 650 mg Q4H PRN ORAL Mild Pain (Pain Scale 1-3) 12/24/19 10:45 01/23/20 10:44 Azithromycin (Zithromax) 500 mg DAILY ORAL 12/24/19 11:30 12/31/19 11:29 12/30/19 08:41 Dextrose (Dextrose 50%) 25 ml Q30M PRN IV Hypoglycemia 12/24/19 10:45 03/23/20 10:44 Dextrose (Dextrose 50%) 50 ml Q30M PRN IV Hypoglycemia 12/24/19 10:45 03/23/20 10:44 Heparin Sodium (Porcine) (Heparin 5000 units/ml) 5,000 units EVERY 12 HOURS SUBQ 12/24/19 21:00 02/07/20 20:59 12/30/19 08:43 Potassium Chloride/Sodium Chloride 1,000 ml @ 75 mls/hr [id number] IV 12/24/19 12:00 01/23/20 11:59 12/30/19 08:43 Assessment/Plan Assessment/Plan IMPRESSION: 1. Left lung pneumonia. 2. Positive COVID-19. DISCUSSION: Admitted to the hospital. IV fluids. Antiemetics and Tylenol. I will defer the initiation of Plaquenil to ID. Patient is on azithromycin. I will follow carefully. Saturating well on 2L/min O2 Jen Martinez Omar Syed MD December 30, 2019 11:51
[2019-12-30 11:55] VITALS: BP 98/62
--- NOTE | 2019-12-30 13:28 | Infectious Diseases Prog Note ---
Assessment/Plan Assessment/Plan IMPRESSION: 1. Pneumonia with COVID-19. 2. Lymphopenia, resolving 3.fever resolved RECOMMENDATION: Discontinue Zithromax. can be discharged to home Home isolation for one week Subjective ROS Limited/Unobtainable: No Constitutional: Denies: fever Respiratory: Reports: dry cough; Denies: shortness of breath Gastrointestinal/Abdominal: Reports: no symptoms Genitourinary: Reports: no symptoms Neurologic: Reports: no symptoms Allergies: Coded Allergies: No Known Allergies (Unverified , 12/23/19) Objective Vital Signs Last 24 Hour Vital Signs Date Time Temp Pulse Resp B/P (MAP) Pulse Ox O2 Delivery O2 Flow Rate FiO2 12/30/19 11:55 97.7 72 18 98/62 (74) 94 12/30/19 11:42 71 12/30/19 09:00 Nasal Cannula 2.0 12/30/19 08:00 98.6 71 18 103/59 (74) 100 12/30/19 07:48 67 12/30/19 04:00 97.3 61 15 110/61 (77) 99 12/30/19 03:56 56 12/30/19 00:00 97.7 70 16 108/62 (77) 98 12/30/19 00:00 63 12/29/19 21:03 Nasal Cannula 2.0 12/29/19 20:00 97.5 75 15 101/67 (78) 99 12/29/19 20:00 76 12/29/19 15:53 98.1 66 20 105/68 (80) 100 12/29/19 15:28 63 Height (Feet): 5 Height (Inches): 3.00 Weight (Pounds): 139 General Appearance: no acute distress HEENT: mucous membranes moist Respiratory/Chest: lungs clear Cardiovascular: normal rate Abdomen: soft, non tender Extremities: no edema Neurologic/Psychiatric: alert, oriented x 3, responsive Current Medications Medications (Trade) Dose Ordered Sig/Brayden Route PRN Reason Start Time Stop Time Status Last Admin Dose Admin Acetaminophen (Tylenol) 650 mg Q4H PRN ORAL Temp >100.5 12/23/19 23:00 01/22/20 22:59 12/25/19 10:21 Acetaminophen (Tylenol) 650 mg Q4H PRN ORAL Mild Pain (Pain Scale 1-3) 12/24/19 10:45 01/23/20 10:44 Azithromycin (Zithromax) 500 mg DAILY ORAL 12/24/19 11:30 12/31/19 11:29 12/30/19 08:41 Dextrose (Dextrose 50%) 25 ml Q30M PRN IV Hypoglycemia 12/24/19 10:45 03/23/20 10:44 Dextrose (Dextrose 50%) 50 ml Q30M PRN IV Hypoglycemia 12/24/19 10:45 03/23/20 10:44 Heparin Sodium (Porcine) (Heparin 5000 units/ml) 5,000 units EVERY 12 HOURS SUBQ 12/24/19 21:00 02/07/20 20:59 12/30/19 08:43 Potassium Chloride/Sodium Chloride 1,000 ml @ 75 mls/hr [id number] IV 12/24/19 12:00 01/23/20 11:59 12/30/19 08:43 eJan Pierre Cardenas MD December 30, 2019 13:28
[2019-12-30 16:00] VITALS: BP 100/61
[2019-12-30 20:00] VITALS: BP 103/66
--- NOTE | 2019-12-30 21:17 | General Progress Note ---
Assessment/Plan Problem List: (1) Suspected 2019 novel coronavirus infection ICD Codes: Z20.828 - Contact with and (suspected) exposure to other viral communicable diseases SNOMED: 879105030 (2) Fever ICD Codes: R50.9 - Fever, unspecified SNOMED: 910598592 (3) Shortness of breath ICD Codes: R06.02 - Shortness of breath SNOMED: 708628310 Status: progressing Assessment/Plan: covid positive pna abx per id dc planning reviewed chart and lab Subjective ROS Limited/Unobtainable: Yes Allergies: Coded Allergies: No Known Allergies (Unverified , 12/23/19) Objective Last 24 Hour Vital Signs Date Time Temp Pulse Resp B/P (MAP) Pulse Ox O2 Delivery O2 Flow Rate FiO2 12/30/19 16:00 97.9 71 18 100/61 (74) 96 12/30/19 15:41 69 12/30/19 11:55 97.7 72 18 98/62 (74) 94 12/30/19 11:42 71 12/30/19 09:00 Nasal Cannula 2.0 12/30/19 08:00 98.6 71 18 103/59 (74) 100 12/30/19 07:48 67 12/30/19 04:00 97.3 61 15 110/61 (77) 99 12/30/19 03:56 56 12/30/19 00:00 97.7 70 16 108/62 (77) 98 12/30/19 00:00 63 Intake and Output 12/29/19 12/30/19 19:00 07:00 Intake Total 990 ml Balance 990 ml Intake Oral 140 ml IV Total 850 ml # Voids 1 Height (Feet): 5 Height (Inches): 3.00 Weight (Pounds): 139 Neida Benson MD December 30, 2019 21:17
--- NOTE | 2019-12-30 21:29 | General Progress Note ---
Progress Note Progress Note i asked dr parker if this patient can be dc and he said yes the patient can be dc home from his point of view Neida Benson MD December 30, 2019 21:29
[2019-12-31] VITALS: BP 109/70
[2019-12-31 04:00] VITALS: BP 101/87
[2019-12-31] MEDS: NS w/KCl 20mEq 1000ml 1,000 ML IV SCH ×2 (04:51→17:26)
[2019-12-31 08:00] VITALS: BP 101/77
[2019-12-31] MEDS: Heparin 5000 units/ml inj SUBQ SCH ×2 (10:01→20:45)
--- NOTE | 2019-12-31 10:34 | Pulmonology Progress Note ---
Subjective ROS Limited/Unobtainable: Yes Interval Events: + COVID 19 Constitutional: Denies: fever HEENT: Repors: no symptoms Respiratory: Reports: dry cough, shortness of breath Cardiovascular: Reports: no symptoms Gastrointestinal/Abdominal: Reports: no symptoms Allergies: Coded Allergies: No Known Allergies (Unverified , 12/23/19) Objective Last 24 Hour Vital Signs Date Time Temp Pulse Resp B/P (MAP) Pulse Ox O2 Delivery O2 Flow Rate FiO2 12/31/19 09:00 Nasal Cannula 2.0 12/31/19 08:00 66 12/31/19 08:00 96.6 90 20 101/77 (85) 95 12/31/19 04:00 97.5 78 18 101/87 (92) 98 12/31/19 04:00 64 12/31/19 00:00 82 12/31/19 00:00 97.8 71 18 109/70 (83) 100 12/30/19 21:38 Nasal Cannula 2.0 12/30/19 20:00 70 12/30/19 20:00 97.7 73 17 103/66 (78) 99 12/30/19 16:00 97.9 71 18 100/61 (74) 96 12/30/19 15:41 69 12/30/19 11:55 97.7 72 18 98/62 (74) 94 12/30/19 11:42 71 Intake and Output 12/30/19 12/31/19 19:00 07:00 Intake Total 1380 ml Balance 1380 ml Intake Oral 480 ml IV Total 900 ml # Voids 3 General Appearance: no acute distress HEENT: mucous membranes moist Respiratory/Chest: chest wall non-tender, lungs clear Cardiovascular: normal peripheral pulses, normal rate Abdomen: soft, non tender Extremities: no edema Neurologic/Psychiatric: alert, oriented x 3, responsive Current Medications Medications (Trade) Dose Ordered Sig/Brayden Route PRN Reason Start Time Stop Time Status Last Admin Dose Admin Acetaminophen (Tylenol) 650 mg Q4H PRN ORAL Temp >100.5 12/23/19 23:00 01/22/20 22:59 12/25/19 10:21 Acetaminophen (Tylenol) 650 mg Q4H PRN ORAL Mild Pain (Pain Scale 1-3) 12/24/19 10:45 01/23/20 10:44 Dextrose (Dextrose 50%) 25 ml Q30M PRN IV Hypoglycemia 12/24/19 10:45 03/23/20 10:44 Dextrose (Dextrose 50%) 50 ml Q30M PRN IV Hypoglycemia 12/24/19 10:45 03/23/20 10:44 Heparin Sodium (Porcine) (Heparin 5000 units/ml) 5,000 units EVERY 12 HOURS SUBQ 12/24/19 21:00 02/07/20 20:59 12/31/19 10:01 Potassium Chloride/Sodium Chloride 1,000 ml @ 75 mls/hr [id number] IV 12/24/19 12:00 01/23/20 11:59 12/31/19 04:51 Assessment/Plan Assessment/Plan IMPRESSION: 1. Left lung pneumonia. 2. Positive COVID-19. DISCUSSION: Admitted to the hospital. IV fluids. Antiemetics and Tylenol. I will defer the initiation of Plaquenil to ID. Patient is on azithromycin. I will follow carefully. Saturating well on 2L/min O2 Jen Martinez Omar Syed MD December 31, 2019 10:34
--- NOTE | 2019-12-31 10:57 | Infectious Diseases Prog Note ---
Assessment/Plan Assessment/Plan IMPRESSION: 1. Pneumonia with COVID-19. 2. Lymphopenia, resolved 3.fever resolved RECOMMENDATION: Observe off antibiotic can be discharged to home Home isolation for one week Subjective ROS Limited/Unobtainable: No Constitutional: Reports: no symptoms, other - feels better Respiratory: Reports: no symptoms Cardiovascular: Reports: no symptoms Gastrointestinal/Abdominal: Reports: no symptoms Genitourinary: Reports: no symptoms Allergies: Coded Allergies: No Known Allergies (Unverified , 12/23/19) Objective Vital Signs Last 24 Hour Vital Signs Date Time Temp Pulse Resp B/P (MAP) Pulse Ox O2 Delivery O2 Flow Rate FiO2 12/31/19 09:00 Nasal Cannula 2.0 12/31/19 08:00 66 12/31/19 08:00 96.6 90 20 101/77 (85) 95 12/31/19 04:00 97.5 78 18 101/87 (92) 98 12/31/19 04:00 64 12/31/19 00:00 82 12/31/19 00:00 97.8 71 18 109/70 (83) 100 12/30/19 21:38 Nasal Cannula 2.0 12/30/19 20:00 70 12/30/19 20:00 97.7 73 17 103/66 (78) 99 12/30/19 16:00 97.9 71 18 100/61 (74) 96 12/30/19 15:41 69 12/30/19 11:55 97.7 72 18 98/62 (74) 94 12/30/19 11:42 71 Height (Feet): 5 Height (Inches): 3.00 Weight (Pounds): 139 General Appearance: no acute distress HEENT: mucous membranes moist Respiratory/Chest: lungs clear Cardiovascular: normal rate Abdomen: soft, non tender Extremities: no edema Neurologic/Psychiatric: alert, oriented x 3, responsive Current Medications Medications (Trade) Dose Ordered Sig/Brayden Route PRN Reason Start Time Stop Time Status Last Admin Dose Admin Acetaminophen (Tylenol) 650 mg Q4H PRN ORAL Temp >100.5 12/23/19 23:00 01/22/20 22:59 12/25/19 10:21 Acetaminophen (Tylenol) 650 mg Q4H PRN ORAL Mild Pain (Pain Scale 1-3) 12/24/19 10:45 01/23/20 10:44 Dextrose (Dextrose 50%) 25 ml Q30M PRN IV Hypoglycemia 12/24/19 10:45 03/23/20 10:44 Dextrose (Dextrose 50%) 50 ml Q30M PRN IV Hypoglycemia 12/24/19 10:45 03/23/20 10:44 Heparin Sodium (Porcine) (Heparin 5000 units/ml) 5,000 units EVERY 12 HOURS SUBQ 12/24/19 21:00 02/07/20 20:59 12/31/19 10:01 Potassium Chloride/Sodium Chloride 1,000 ml @ 75 mls/hr [id number] IV 12/24/19 12:00 01/23/20 11:59 12/31/19 04:51 Jean Pierre Cardenas MD December 31, 2019 10:57
[2019-12-31 12:00] VITALS: BP 97/65
--- NOTE | 2019-12-31 13:14 | Cardiac Electrophysiology PN ---
Assessment/Plan Assessment/Plan 1. Sinus tachy due to sepsis and COVID PNA 2. Shortness of breath due to COVID pneumonia. Ruled out for [place] 3. Fever on Azithomycin per ID DW RN Subjective Subjective In isolation for COVID PNA. In SR. No events Objective Last 24 Hour Vital Signs Date Time Temp Pulse Resp B/P (MAP) Pulse Ox O2 Delivery O2 Flow Rate FiO2 12/31/19 09:00 Nasal Cannula 2.0 12/31/19 08:00 66 12/31/19 08:00 96.6 90 20 101/77 (85) 95 12/31/19 04:00 97.5 78 18 101/87 (92) 98 12/31/19 04:00 64 12/31/19 00:00 82 12/31/19 00:00 97.8 71 18 109/70 (83) 100 12/30/19 21:38 Nasal Cannula 2.0 12/30/19 20:00 70 12/30/19 20:00 97.7 73 17 103/66 (78) 99 12/30/19 16:00 97.9 71 18 100/61 (74) 96 12/30/19 15:41 69 Intake and Output 12/30/19 12/31/19 19:00 07:00 Intake Total 1380 ml Balance 1380 ml Intake Oral 480 ml IV Total 900 ml # Voids 3 Objective HEENT : No JVD. LUNGS: Coarse rhonchi. CARDIOVASCULAR: Regular S1 and S2 and tachycardic. ABDOMEN: Soft. EXTREMITIES: No pitting edema. Paulo Panda MD December 31, 2019 13:14
[2019-12-31 16:00] VITALS: BP 99/68
[2019-12-31 20:00] VITALS: BP 98/67
--- NOTE | 2019-12-31 21:20 | General Progress Note ---
Assessment/Plan Problem List: (1) Suspected 2019 novel coronavirus infection ICD Codes: Z20.828 - Contact with and (suspected) exposure to other viral communicable diseases SNOMED: 645900459 (2) Fever ICD Codes: R50.9 - Fever, unspecified SNOMED: 912517796 (3) Shortness of breath ICD Codes: R06.02 - Shortness of breath SNOMED: 872611308 Status: progressing Assessment/Plan: covid positive pna repeat covid is sent awaiting results afebrile no sob Subjective ROS Limited/Unobtainable: Yes Allergies: Coded Allergies: No Known Allergies (Unverified , 12/23/19) Objective Last 24 Hour Vital Signs Date Time Temp Pulse Resp B/P (MAP) Pulse Ox O2 Delivery O2 Flow Rate FiO2 12/31/19 16:00 70 12/31/19 16:00 97.7 71 19 99/68 (78) 96 12/31/19 12:00 81 12/31/19 12:00 97.5 80 20 97/65 (76) 95 12/31/19 09:00 Nasal Cannula 2.0 12/31/19 08:00 66 12/31/19 08:00 96.6 90 20 101/77 (85) 95 12/31/19 04:00 97.5 78 18 101/87 (92) 98 12/31/19 04:00 64 12/31/19 00:00 82 12/31/19 00:00 97.8 71 18 109/70 (83) 100 12/30/19 21:38 Nasal Cannula 2.0 Intake and Output 12/30/19 12/31/19 19:00 07:00 Intake Total 1380 ml Balance 1380 ml Intake Oral 480 ml IV Total 900 ml # Voids 3 Height (Feet): 5 Height (Inches): 3.00 Weight (Pounds): 139 Neida Benson MD December 31, 2019 21:20
[2020-01-01] VITALS: BP 99/62
[2020-01-01 04:00] VITALS: BP 104/58
[2020-01-01] MEDS: NS w/KCl 20mEq 1000ml 1,000 ML IV SCH (07:13)
[2020-01-01 08:00] VITALS: BP 91/56
[2020-01-01] MEDS ORDERED: ACETAMINOPHEN325 M1 ORAL (08:51)
[2020-01-01] MEDS: Heparin 5000 units/ml inj SUBQ SCH (09:00)
--- NOTE | 2020-01-01 10:17 | Pulmonology Progress Note ---
Subjective ROS Limited/Unobtainable: Yes Interval Events: + COVID 19 Constitutional: Reports: no symptoms, other HEENT: Repors: no symptoms Respiratory: Reports: dry cough, shortness of breath Cardiovascular: Reports: no symptoms Gastrointestinal/Abdominal: Reports: no symptoms Allergies: Coded Allergies: No Known Allergies (Unverified , 12/23/19) Objective Last 24 Hour Vital Signs Date Time Temp Pulse Resp B/P (MAP) Pulse Ox O2 Delivery O2 Flow Rate FiO2 01/01/20 09:00 Room Air 01/01/20 08:00 97.3 74 18 91/56 (68) 95 01/01/20 08:00 98 01/01/20 04:00 75 01/01/20 04:00 97.4 73 17 104/58 (73) 96 01/01/20 00:00 97.6 76 18 99/62 (74) 96 01/01/20 00:00 65 12/31/19 21:00 Room Air 12/31/19 20:00 97.4 72 17 98/67 (77) 98 12/31/19 20:00 88 12/31/19 16:00 70 12/31/19 16:00 97.7 71 19 99/68 (78) 96 12/31/19 12:00 81 12/31/19 12:00 97.5 80 20 97/65 (76) 95 Intake and Output 12/31/19 01/01/20 19:00 07:00 Intake Total 795 ml 900 ml Balance 795 ml 900 ml Intake Oral 720 ml IV Total 75 ml 900 ml # Voids 3 2 General Appearance: no acute distress HEENT: mucous membranes moist Respiratory/Chest: chest wall non-tender, lungs clear Cardiovascular: normal peripheral pulses, normal rate Abdomen: soft, non tender Extremities: no edema Neurologic/Psychiatric: alert, oriented x 3, responsive Microbiology Date/Time Source Procedure Growth Status 12/30/19 16:15 Nasopharynx Coronavirus COVID-19 PCR (MEG) - Final Complete Current Medications Medications (Trade) Dose Ordered Sig/Brayden Route PRN Reason Start Time Stop Time Status Last Admin Dose Admin Acetaminophen (Tylenol) 650 mg Q4H PRN ORAL Temp >100.5 12/23/19 23:00 01/22/20 22:59 12/25/19 10:21 Acetaminophen (Tylenol) 650 mg Q4H PRN ORAL Mild Pain (Pain Scale 1-3) 12/24/19 10:45 01/23/20 10:44 Dextrose (Dextrose 50%) 25 ml Q30M PRN IV Hypoglycemia 12/24/19 10:45 03/23/20 10:44 Dextrose (Dextrose 50%) 50 ml Q30M PRN IV Hypoglycemia 12/24/19 10:45 03/23/20 10:44 Heparin Sodium (Porcine) (Heparin 5000 units/ml) 5,000 units EVERY 12 HOURS SUBQ 12/24/19 21:00 02/07/20 20:59 12/31/19 20:45 Potassium Chloride/Sodium Chloride 1,000 ml @ 75 mls/hr [id number] IV 12/24/19 12:00 01/23/20 11:59 01/01/20 07:13 Assessment/Plan Assessment/Plan IMPRESSION: 1. Left lung pneumonia. 2. Positive COVID-19. DISCUSSION: Doing well on RA OK to dc Jen Martinez Omar Syed MD January 01, 2020 10:17
--- NOTE | 2020-01-02 11:31 | Discharge Summary ---
Discharge Summary Discharge Summary _ DATE OF ADMISSION: 12/23/2019 DATE OF DISCHARGE: 01/01/2020 DISCHARGED BY: Dr Benson REASON FOR ADMISSION: 34 years old male with no significant past medical history, presented to emergency department with difficulty breathing and nonproductive cough. Patient reported fever for the last 5 days. Patient also reported decreased appetite. He denied abdominal pain, but reported increased nausea and vomiting. Patient had some sick contacts at home. He also reported increased generalized pain and body aches. Upon evaluation patient was febrile with temperature 102.6, tachycardic with heart rate 145 and hypoxic , requiring supplemental oxygen. Laboratory work-up revealed no leukocytosis ,stable hemoglobin ,hematocrit and lymphopenia. Potassium 2.4. Glucose 114. Troponin negative. Urinalysis revealed no evidence of urinary tract infection. Chest x-ray demonstrated questionable retrocardiac infiltrate and left basilar atelectasis. In emergency department patient was pancultured and started on empiric antibiotics. Patient was also swabbed for COVID-19. Patient admitted to telemetry floor to isolation room for further management. CONSULTANTS: shirt folder Dr. Novoa pulmonary Dr. Rees ID specialist [facility] COURSE: Patient admitted to telemetry floor to isolation room. Blood cultures were negative. SARS-CoV-2 by PCR on 12/22 was detected. Repeated SARS-CoV-2 by PCR on 12/29 was still detected. Patient received treatment for pneumonia. Fevers and lymphopenia resolved. ID specialist recommended to observe patient off antibiotics and cleared patient for discharge home with one additional week of home isolation. Supplemental oxygen provided to keep pulse oximetry above 92%. Pulmonary toilet provided. Prior to discharge pulse oximetry stable on room air. Patient initially was in sinus tachycardia. Telemetry showed sinus tachycardia , no evidence of arrhythmia. Sinus tachycardia resolved , most likely was due to sepsis and pneumonia. Troponin was negative. EKG revealed sinus rhythm , no acute ischemic changes. Patient was ruled out for acute [place] by shirt folder. DVT prophylaxis provided. Potassium was replaced. Echocardiogram revealed preserved ejection fraction 55 to 60% with no evidence of left ventricular hypertrophy. No evidence of wall motion abnormality. Patient clinically stabilized and was ready for discharge home FINAL DIAGNOSES: Confirmed COVID-19 pneumonia Lymphopenia- resolved Fevers- resolved Shortness of breath -resolved DISCHARGE MEDICATIONS: Please refer to Medication Reconciliation list. DISCHARGE INSTRUCTIONS: Patient was discharged home. Patient was advised on one week of home isolation. I have been assigned to dictate discharge summary for this account. I was not involved in the patient's management. Tiffany Enciso NP January 02, 2020 11:31
== END 2020-01-01 11:33 | disposition home or self-care (01) | DRG 871 ==
LOC: EDBD 15:28 → EMR 15:46 → EDBEDREQ 16:39 → 2E 16:50 → EDBEDREQSVC 17:33 → EDBEDREQ 18:52 → 2E 12-28 17:51
DX: A41.89 Other specified sepsis (principal); U07.1 COVID-19; J12.89 Other viral pneumonia; D72.810 Lymphocytopenia
CPT/HCPCS: 36415; 71045; 80048; 80053; 81003; 82550; 82553; 83605; 83735; 84100; 84484; 85007; 85025; 87040; 87635; 93005; 93306; 96361; 96365; 96367; 99291; J7030